=== PATIENT | female | born 1995 | race Two or more races ===

== ENCOUNTER 2017-07-05 22:44 | Outpatient (CLI) | payer MEDICAID | END 2017-07-05 22:45 | disposition EMS.NT | LOC: EMS 22:44 | PROVIDERS: ATTEND Surgery | DX: R06.00 Dyspnea, unspecified (principal); R42 Dizziness and giddiness ==

== ENCOUNTER 2017-07-21 19:49 | Emergency (ER) | payer OTHER, MEDICAID ==
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
[2017-07-21] MEDS ORDERED: IBUPROFEN 600 MG TABLET PO STA (20:15)
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
[2017-07-21 21:39] VITALS: BP 126/68
== END 2017-07-21 21:44 | disposition home or self-care (01) ==
LOC: ED 19:49
DX: S16.1XXA Strain of muscle, fascia and tendon at neck level, initial encounter (principal); V89.2XXA Person injured in unspecified motor-vehicle accident, traffic, initial encounter
CPT/HCPCS: 72040; 99283; A9270

== ENCOUNTER 2017-08-16 13:18 | Emergency (ER) | payer MEDICAID, OTHER ==
[2017-08-16] MEDS ORDERED: guaiFENesin/DEXTROMETHORPHAN 10 ML UDC PO STA (14:40)
[2017-08-16] MEDS ORDERED: BENZONATATE 100 MG CAPSULE PO STA (14:40)
--- NOTE | 2017-08-16 15:15 | XRAY Report ---
EXAM: CHEST RADIOGRAPHY EXAM DATE: 08/16/2017 02:57 PM. CLINICAL HISTORY: Cough, hemoptysis. COMPARISON: None. TECHNIQUE: 2 views. FINDINGS: Lungs/Pleura: No focal opacities evident. No pleural effusion. No pneumothorax. Normal volumes. Mediastinum: Heart and mediastinal contours are unremarkable. Other: None. IMPRESSION: No acute intrathoracic plain film abnormality. [facility] Referring Provider Line: [phone] SITE ID: [id number]
--- NOTE | 2017-08-16 15:36 | ED Physician Documentation ---
History of Present Illness - Stated complaint Stated Complaint: COUGH,SORE THROAT,CONGESTION,SOA,FEVER - Chief complaint Chief Complaint: Resp - Additonal information Additional information: hx from pt 21 y/o f 4 days of fever cough productive of mucous sometimes bloody sore throat ear ache myalgias exposed to influenza and croup denies preg Review of Systems Constitutional: reports: Fever, Chills, Myalgias Ears: reports: Ear pain Throat: reports: Sore throat Respiratory: reports: Cough, Hemoptysis : denies: Now EGA Endocrine: denies: Easy bruising / bleeding Immunocompromised: denies: Immunocompromised PD PAST MEDICAL HISTORY - Past Medical History Past Medical History: No Neuro: None Musculoskeletal: None - Past Surgical History Past Surgical History: No - Present Medications Home Medications: Ambulatory Orders Medication Instructions Recorded Confirmed Amoxicillin 500 mg PO Q8H #21 capsule 08/16/17 Benzonatate [Tessalon] 100 mg PO TID PRN #20 capsule 08/16/17 guaiFENesin/DEXTROMETHORPHAN 10 ml PO Q6H PRN #120 ml 08/16/17 [Robitussin Dm] - Allergies Allergies/Adverse Reactions: Allergies Allergy/AdvReac Type Severity Reaction Status Date / Time No Known Drug Allergies Allergy Verified 08/16/17 13:34 - Social History Does the pt smoke?: No Smoking Status: Never smoker Does the pt drink ETOH?: Yes Does the pt have substance abuse?: No - Immunizations Immunizations are current?: No - POLST Patient has POLST: No PD ED PE NORMAL - Vitals Vital signs reviewed: Yes - General General: Alert and oriented X 3 - HEENT HEENT: Moist mucous membranes. No: Ears normal (L TM dull erythematous loss of landmarks, R retracted), Pharynx benign (erythema s exudate) - Neck Neck: Supple, no meningeal sign - Cardiac Cardiac: RRR - Respiratory Respiratory: No respiratory distress, Clear bilaterally - Abdomen Abdomen: Non tender - Extremities Extremities: No edema, No calf tenderness / cord Results - Vitals Vitals: Vital Signs - 24 hr 08/16/17 13:32 Temperature 36.6 C Heart Rate 92 Respiratory 18 Rate Blood Pressure 123/63 O2 Saturation 98 Oxygen O2 Source Room air - Labs Labs: Laboratory Tests 08/16/17 13:30 Influenza A (Rapid) Negative Influenza B (Rapid) Negative Influenza Types A,B Ag - - Rads (name of study) CXR Radiology: See rad report (NACPD) Departure - Departure Disposition: 01 Home, Self Care Clinical Impression: Influenza Otitis media Qualifiers: Otitis media type: suppurative Chronicity: acute Laterality: left Recurrence: not specified as recurrent Spontaneous tympanic membrane rupture: without spontaneous rupture Qualified Code(s): H66.002 - Acute suppurative otitis media without spontaneous rupture of ear drum, left ear Condition: Good Instructions: ED Flu Prescriptions: Amoxicillin 500 mg PO Q8H #21 capsule Benzonatate [Tessalon] 100 mg PO TID PRN #20 capsule PRN Reason: to ease cough guaiFENesin/DEXTROMETHORPHAN [Robitussin Dm] 10 ml PO Q6H PRN #120 ml PRN Reason: Cough Comments: Your flu swabs were negative bujt the test is not 100% accurate - you were eposed to influenza and your symptoms are typical of influenza so I am fairly certain you have influenza as well. Your xray does not show pneumonia. You have been sick for 3-4 days so it is too late for tamiflu to help against the influenza virus I did prescribe an antibiotic for your ear infection And also prescribed medications to ease the cough Follow up with your PDM as needed Return to the ER if worse - especially if you cough up more than a tablespoon of lamberto blood Forms: Activity restrictions
[2017-08-16 15:50] VITALS: BP 126/77
== END 2017-08-16 15:50 | disposition home or self-care (01) ==
LOC: ED 13:18
DX: J11.1 Influenza due to unidentified influenza virus with other respiratory manifestations (principal); H66.002 Acute suppurative otitis media without spontaneous rupture of ear drum, left ear
CPT/HCPCS: 71046; 87275; 87276; 99283; A9270

== ENCOUNTER 2017-09-12 10:27 | Emergency (ER) | payer MEDICAID ==
[2017-09-12 11:15] LABS: BILIRUBIN,URINE NEGATIVE (NEGATIVE); GLUCOSE, URINE (UA) NEGATIVE (NEGATIVE); KETONES,URINE (UA) NEGATIVE (NEGATIVE); LEUKOCYTE ESTERASE, URINE NEGATIVE (NEGATIVE); NITRITE,URINE NEGATIVE (NEGATIVE); OCCULT BLOOD,URINE NEGATIVE (NEGATIVE); PH,URINE 6.5 PH (5.0-7.5); PROTEIN,URINE NEGATIVE (NEGATIVE); UROBILINOGEN,URINE 0.2 (NORMAL) E.U./dL (NORMAL)
[2017-09-12 11:17] LABS: CLARITY,URINE CLEAR (CLEAR); HCG UR QUAL NEGATIVE
--- NOTE | 2017-09-12 12:16 | ED Physician Documentation ---
PD HPI ABD PAIN - Stated complaint Stated Complaint: ABD PX - Chief complaint Chief Complaint: Abd Pain - History obtained from History obtained from: Patient - History of Present Illness Timing - onset: How many days ago Timing - duration: Days Timing - details: Gradual onset, Waxing and waning Quality: Cramping, Aching, Sharp (both sides of abdomen when coughing.) Location: All over / everywhere (she has had some upper abd pains at times, not related to eating. Crampy at times. This is mid to upper abd. She is also having sharp pain both sides mid to upper abd when she coughs. Has had a cough for about a month. Now with abd pain the past week or so. Intense pain at times for several minutes then fades.) Radiation: No: Lower back, Left flank, Right flank Associated symptoms: Constipation (mild), Other (cough). No: Fever, Nausea, Vomiting, Diarrhea, Melena Similar symptoms before: Has not had sx before Recently seen: Not recently seen Review of Systems Constitutional: denies: Fever, Chills Nose: denies: Rhinorrhea / runny nose, Congestion Throat: denies: Sore throat Cardiac: denies: Chest pain / pressure, Palpitations, Pedal edema, Calf pain Respiratory: reports: Cough, Wheezing. denies: Dyspnea GI: reports: Abdominal Pain, Constipation. denies: Abdominal Swelling, Nausea, Vomiting, Diarrhea : denies: Dysuria, Frequency Skin: denies: Rash, Lesions PD PAST MEDICAL HISTORY - Past Medical History Neuro: None Musculoskeletal: None - Past Surgical History Past Surgical History: No - Present Medications Home Medications: Ambulatory Orders Medication Instructions Recorded Confirmed Benzonatate [Tessalon] 100 mg PO TID PRN #25 capsule 09/12/17 Dexamethasone [Decadron] 4 mg PO DAILY #5 tablet 09/12/17 Doxycycline Monohydrate 100 mg PO BID #14 tablet 09/12/17 HYDROcod/ACETAM 5/325 [[place] 5/325] 1 tab PO Q6H PRN #15 tablet 09/12/17 - Allergies Allergies/Adverse Reactions: Allergies Allergy/AdvReac Type Severity Reaction Status Date / Time No Known Drug Allergies Allergy Verified 09/12/17 11:00 - Social History Does the pt smoke?: No Smoking Status: Never smoker Does the pt drink ETOH?: Yes Does the pt have substance abuse?: No - Immunizations Immunizations are current?: No - POLST Patient has POLST: No PD ED PE NORMAL - Vitals Vital signs reviewed: Yes - General General: Alert and oriented X 3, No acute distress, Well developed/nourished - HEENT HEENT: Ears normal, Pharynx benign - Neck Neck: Supple, no meningeal sign, No adenopathy - Cardiac Cardiac: RRR, No murmur - Respiratory Respiratory: Clear bilaterally - Abdomen Abdomen: Normal bowel sounds, Soft, Non distended, No organomegaly, Other ( minimal tenderness both sides mid abd, without guarding nor percussion tenderness. ) - Female Female : Deferred - Rectal Rectal: Deferred - Back Back: No CVA TTP - Derm Derm: Normal color, Warm and dry Results - Vitals Vitals: Vital Signs - 24 hr 09/12/17 09/12/17 10:52 13:30 Temperature 36.2 C L Heart Rate 79 75 Respiratory 18 16 Rate Blood Pressure 126/113 H 125/85 H O2 Saturation 97 Oxygen O2 Source Room air - Labs Labs: Laboratory Tests 09/12/17 11:03 Urine Color LT. YELLOW Urine Clarity CLEAR Urine pH 6.5 Ur Specific [place] <=1.005 Urine Protein NEGATIVE Urine Glucose (UA) NEGATIVE Urine Ketones NEGATIVE Urine Occult Blood NEGATIVE Urine Nitrite NEGATIVE Urine Bilirubin NEGATIVE Urine Urobilinogen 0.2 (NORMAL) Ur Leukocyte Esterase NEGATIVE Ur Microscopic Review NOT INDICATED Urine Culture Comments NOT INDICATED Urine HCG, Qual NEGATIVE - Rads (name of study) chest xray Radiology: Prelim report reviewed, EMP read contemporaneously (no infiltrate) PD MEDICAL DECISION MAKING - ED course Complexity details: considered differential (It sounds like her abd pain is largely muscular from coughing. Also could have some gastric component. No signs of GB based on area of tenderness. Has some element of constipation, so will treat for that. Otherwise URI symptoms. ), d/w patient Departure - Departure Disposition: 01 Home, Self Care Clinical Impression: Upper respiratory infection Qualifiers: URI type: unspecified URI Qualified Code(s): J06.9 - Acute upper respiratory infection, unspecified Abdominal pain Qualifiers: Abdominal location: generalized Qualified Code(s): R10.84 - Generalized abdominal pain Condition: Stable Record reviewed to determine appropriate education?: Yes Instructions: ED Abdominal Pain Unkn Cause, ED Upper Resp Infec Abx Tx Prescriptions: Benzonatate [Tessalon] 100 mg PO TID PRN #25 capsule PRN Reason: Cough Dexamethasone [Decadron] 4 mg PO DAILY #5 tablet Doxycycline Monohydrate 100 mg PO BID #14 tablet HYDROcod/ACETAM 5/325 [[place] 5/325] 1 tab PO Q6H PRN #15 tablet PRN Reason: Pain Comments: I think your stomach pain is intestinal related to the current illness you have as well as an effect of the coughing. Will treat the general illness with antibiotics doxycycline, Decadron anti-inflammatory, Tessalon for cough and hydrocodone for pains and cough. See if you are improving over the next 2-3 days. Use Tylenol or ibuprofen if needed for mild pains. Drink lots of fluids. Return if worsening. Discharge Date/Time: 09/12/17 13:32
[2017-09-12] MEDS ORDERED: BENZONATATE 100 MG CAPSULE PO STA (12:37)
[2017-09-12] MEDS ORDERED: ACETAMINOPHEN 325 MG TABLET PO STA (12:37)
[2017-09-12] MEDS ORDERED: IBUPROFEN 600 MG TABLET PO STA (12:37)
--- NOTE | 2017-09-12 13:06 | XRAY Preliminary Report ---
Exam: XR CHEST 2 VIEW X-RAY IMPRESSION: Normal 2-view chest radiography. [facility] SITE ID: [id number]
--- NOTE | 2017-09-12 13:10 | XRAY Report ---
EXAM: CHEST RADIOGRAPHY EXAM DATE: 09/12/2017 12:58 PM. CLINICAL HISTORY: Productive cough for one week. COMPARISON: 08/16/2017. TECHNIQUE: 2 views. FINDINGS: Lungs/Pleura: No focal opacities evident. No pleural effusion. No pneumothorax. Normal volumes. Mediastinum: Heart and mediastinal contours are unremarkable. Other: None. IMPRESSION: Normal 2-view chest radiography. [facility] Referring Provider Line: [phone] SITE ID: [id number]
[2017-09-12 13:32] VITALS: BP 125/85
== END 2017-09-12 13:32 | disposition home or self-care (01) ==
LOC: ED 10:27
DX: J06.9 Acute upper respiratory infection, unspecified (principal); R10.84 Generalized abdominal pain
CPT/HCPCS: 71046; 81003; 81025; 99283; A9270; 81001; 87086

== ENCOUNTER 2017-09-19 10:59 | Emergency (ER) | payer MEDICAID ==
--- NOTE | 2017-09-19 12:37 | ED Physician Documentation ---
PD HPI URI - Stated complaint Stated Complaint: HEAD-CHEST PX, EAR PX, WEAK, HURTS TO SWALLOW - Chief complaint Chief Complaint: General - History obtained from History obtained from: Patient - History of Present Illness Timing - onset: Yesterday Timing duration: Days (2) Timing details: Abrupt onset, Still present Associated symptoms: Fever, Chills, Nasal congestion, Sore throat, Dry cough. No: NVD Contributing factors: COPD / asthma. No: Sick contact, Travel, Immunocompromised Improves by: Rest Worsened by: Activity Similar symptoms before: Has not had sx before Recently seen: Not recently seen Review of Systems Constitutional: reports: Fever, Chills, Myalgias, Fatigue Nose: reports: Rhinorrhea / runny nose Throat: reports: Sore throat Respiratory: reports: Cough GI: reports: Nausea. denies: Vomiting, Diarrhea Skin: denies: Rash, Lesions PD PAST MEDICAL HISTORY - Past Medical History Neuro: None Musculoskeletal: None - Past Surgical History Past Surgical History: No - Present Medications Home Medications: Ambulatory Orders Medication Instructions Recorded Confirmed Benzonatate [Tessalon] 100 mg PO TID PRN #25 capsule 09/12/17 Dexamethasone [Decadron] 4 mg PO DAILY #5 tablet 09/19/17 Naproxen 375 mg PO BID #20 tablet 09/19/17 Tramadol HCl 50 mg PO Q6H PRN #15 tablet 09/19/17 - Allergies Allergies/Adverse Reactions: Allergies Allergy/AdvReac Type Severity Reaction Status Date / Time No Known Drug Allergies Allergy Verified 09/19/17 11:07 - Social History Does the pt smoke?: No Smoking Status: Never smoker Does the pt drink ETOH?: Yes Does the pt have substance abuse?: No - Immunizations Immunizations are current?: No - POLST Patient has POLST: No PD ED PE NORMAL - Vitals Vital signs reviewed: Yes - General General: Alert and oriented X 3, No acute distress, Well developed/nourished - HEENT HEENT: Ears normal, Pharynx benign - Neck Neck: Supple, no meningeal sign, No adenopathy - Cardiac Cardiac: RRR, No murmur - Respiratory Respiratory: Clear bilaterally - Abdomen Abdomen: Normal bowel sounds, Soft, Non tender - Back Back: No CVA TTP - Derm Derm: Normal color, Warm and dry, No rash Results - Vitals Vitals: Oxygen O2 Source Room air Departure - Departure Disposition: 01 Home, Self Care Clinical Impression: Upper respiratory infection Qualifiers: URI type: unspecified URI Qualified Code(s): J06.9 - Acute upper respiratory infection, unspecified Condition: Stable Record reviewed to determine appropriate education?: Yes Instructions: ED Upper Resp Infec No Abx Tx Prescriptions: Dexamethasone [Decadron] 4 mg PO DAILY #5 tablet Naproxen 375 mg PO BID #20 tablet Tramadol HCl 50 mg PO Q6H PRN #15 tablet PRN Reason: Pain Comments: Drink lots of fluids. Does sound like a another or recurrent head cold. Naproxen twice daily. Add tramadol if needed for pain. Decadron daily for 5 more days like it is last week for inflammation. Rest as needed. Discharge Date/Time: 09/19/17 12:57
[2017-09-19] MEDS ORDERED: traMADol 50 MG TABLET PO STA (12:48)
[2017-09-19] MEDS ORDERED: CETIRIZINE 10 MG TABLET PO STA (12:48)
[2017-09-19] MEDS ORDERED: DEXAMETHASONE 10 MG/ML VIAL PO STA (12:48)
[2017-09-19 12:57] VITALS: BP 121/64
== END 2017-09-19 12:57 | disposition home or self-care (01) ==
LOC: ED 10:59
DX: J06.9 Acute upper respiratory infection, unspecified (principal)
CPT/HCPCS: 99283; A9270

== ENCOUNTER 2019-03-10 14:05 | Emergency (ER) | payer SELFPAY ==
[2019-03-10 14:13] VITALS: BP 122/63
--- NOTE | 2019-03-10 15:12 | ED Physician Documentation ---
PD HPI HEENT - Stated complaint Stated Complaint: TOOTH PX - Chief complaint Chief Complaint: Heent - History obtained from History obtained from: Patient - History of Present Illness Timing - onset: How many days ago (3) Timing - duration: Days (3) Timing - details: Gradual onset, Still present Location: Tooth (left lower molar) Associated symptoms: Facial swelling. No: Fever, Congestion, Swollen nodes Similar symptoms before: Diagnosis (dental infections in the past. Does not have a dentist.) Recently seen: Not recently seen Review of Systems Constitutional: denies: Fever, Chills Nose: denies: Rhinorrhea / runny nose Throat: reports: Dental pain / toothache. denies: Sore throat Cardiac: denies: Chest pain / pressure PD PAST MEDICAL HISTORY - Past Medical History Past Medical History: No Musculoskeletal: None - Past Surgical History Past Surgical History: No - Present Medications Home Medications: Ambulatory Orders Medication Instructions Recorded Confirmed Benzonatate [Tessalon] 100 mg PO TID PRN #25 capsule 09/12/17 Naproxen 375 mg PO BID #20 tablet 09/19/17 Tramadol HCl 50 mg PO Q6H PRN #15 tablet 09/19/17 dexAMETHasone [Decadron] 4 mg PO DAILY #5 tablet 09/19/17 Clindamycin HCl [Clindamycin 300MG 300 mg PO TID #21 capsule 03/10/19 CAP] Hydrocodone/Acetaminophen [[place] 1 each PO Q6H PRN #20 tablet 03/10/19 5-325 Tablet] - Allergies Allergies/Adverse Reactions: Allergies Allergy/AdvReac Type Severity Reaction Status Date / Time No Known Drug Allergies Allergy Verified 03/10/19 14:13 - Social History Does the pt smoke?: No Smoking Status: Never smoker Does the pt drink ETOH?: Yes Does the pt have substance abuse?: No - Immunizations Immunizations are current?: No - POLST Patient has POLST: No PD ED PE NORMAL - Vitals Vital signs reviewed: Yes - General General: Alert and oriented X 3, No acute distress, Well developed/nourished - HEENT HEENT: No: Dentition benign (left lower 2nd molar with decay lingual side. Gum has some tenderness and swelling. No fluctuance. No redness. ) - Neck Neck: Supple, no meningeal sign, No adenopathy - Cardiac Cardiac: RRR, No murmur Results - Vitals Vitals: Vital Signs - 24 hr 03/10/19 14:11 Temperature 36.5 C Heart Rate 71 Respiratory 19 Rate Blood Pressure 122/63 O2 Saturation 99 Oxygen O2 Source Room air PD MEDICAL DECISION MAKING - ED course Complexity details: considered differential (dental infection. No drainable abscess. She says she will get Rx in few days when payday. ), d/w patient Departure - Departure Disposition: Home, Self Care Clinical Impression: Dental infection Condition: Stable Record reviewed to determine appropriate education?: Yes Instructions: ED Abscess Dental Follow-Up: Toshia De Leon [facility] [Provider Group] Prescriptions: Clindamycin HCl [Clindamycin 300MG CAP] 300 mg PO TID #21 capsule Hydrocodone/Acetaminophen [[place] 5-325 Tablet] 1 each PO Q6H PRN #20 tablet PRN Reason: Pain Comments: Stay well-hydrated. Use some naproxen or ibuprofen regular doses 2-3 times a day for inflammation. Add clindamycin antibiotic and hydrocodone for pain as needed. Follow-up with the dentist subsequently for more definitive care of the tooth. One option is [facility] dental clinic and [place] that does sliding scale or uninsured. Recheck if not improving well over a few days. Discharge Date/Time: 03/10/19 16:14
[2019-03-10] MEDS ORDERED: CLINDAMYCIN 150 MG CAPSULE PO STA (15:36)
[2019-03-10] MEDS ORDERED: HYDROcod/ACETAM 5/325 MG TABLET PO STA (15:39)
[2019-03-10] MEDS ORDERED: DEXAMETHASONE 10 MG/ML VIAL PO STA (15:40)
[2019-03-10] MEDS ORDERED: CHERRY SYRUP 10 ML UDC PO ONE (15:40)
== END 2019-03-10 16:14 | disposition home or self-care (01) ==
LOC: ED 14:05
DX: K04.7 Periapical abscess without sinus (principal)
CPT/HCPCS: 99282; 99283; A9270

== ENCOUNTER 2022-01-04 20:22 | Outpatient (CLI) | payer SELFPAY | END 2022-01-04 20:23 | disposition EMS.NT | LOC: EMS 20:22 | DX: R07.89 Other chest pain (principal); R20.0 Anesthesia of skin ==

== ENCOUNTER 2022-01-05 00:39 | Emergency (ER) | payer SELFPAY ==
--- NOTE | 2022-01-05 00:59 | ED Physician Documentation ---
PD HPI CHEST PAIN - Stated complaint Stated Complaint: Resolved chest pain - History obtained from History obtained from: Patient - History of Present Illness Timing - onset: Enter time (22:00), Today Timing - onset during: Light activity Timing - details: Abrupt onset Pain level max: 4 Pain level now: 0 Quality: Tightness Location: Substernal Radiation: Neck (throat) Improved by: Nothing Worsened by: Other (no exacerbating factors) Associated symptoms: Shortness of air, Diaphoresis, Nausea. No: Vomiting, Feeling faint / dizzy, General Weakness, Palpitations Similar symptoms before: Has not had sx before Recently seen: Not recently seen - Additional information Additional information: while making dinner at approximately 10 PM tonight, patient experienced midline chest tightness radiating to her throat associated with dyspnea, mild nausea, diaphoresis. The chest pain lasted approximately 60-90 minutes although the other symptoms had resolved within 30 minutes of onset. Denies h/o similar symptoms. She had called 911 and , per patient, EKG was performed and reassuring. Per patient, EMS recommended patient come to ED for further evaluation; she declined ambulance transport, drove self. She is asymptomatic at the time of this evaluation Review of Systems Constitutional: reports: Sweats. denies: Fever, Chills Cardiac: reports: Chest pain / pressure. denies: Palpitations, Calf pain Respiratory: reports: Dyspnea. denies: Cough, Hemoptysis, Wheezing GI: reports: Nausea. denies: Abdominal Pain, Vomiting : denies: Now [facility] PAST MEDICAL HISTORY - Past Medical History Past Medical History: Yes Musculoskeletal: None - Past Surgical History Past Surgical History: No - Present Medications Home Medications: Ambulatory Orders Medication Instructions Recorded Confirmed Benzonatate [Tessalon] 100 mg PO TID PRN #25 capsule 09/12/17 Naproxen 375 mg PO BID #20 tablet 09/19/17 Tramadol HCl 50 mg PO Q6H PRN #15 tablet 09/19/17 dexAMETHasone [Decadron] 4 mg PO DAILY #5 tablet 09/19/17 Clindamycin HCl [Clindamycin 300MG 300 mg PO TID #21 capsule 03/10/19 CAP] Hydrocodone/Acetaminophen [[place] 1 each PO Q6H PRN #20 tablet 03/10/19 5-325 Tablet] - Allergies Allergies/Adverse Reactions: Allergies Allergy/AdvReac Type Severity Reaction Status Date / Time No Known Drug Allergies Allergy Verified 01/05/22 00:48 - Social History Does the pt smoke?: No Smoking Status: Never smoker Does the pt drink ETOH?: Yes Does the pt have substance abuse?: No - Immunizations Immunizations are current?: No - POLST Patient has POLST: No PD ED PE NORMAL - Vitals Vital signs reviewed: Yes - General General: Alert and oriented X 3, No acute distress, Well developed/nourished - Neck Neck: Supple, no meningeal sign - Cardiac Cardiac: RRR, No murmur, No gallop, No rub - Respiratory Respiratory: No respiratory distress, Clear bilaterally - Abdomen Abdomen: Soft, Non tender - Back Back: No CVA TTP Results - Vitals Vitals: Oxygen O2 Source Room air - EKG (time done) No standard instances Rate: Rate (enter#) (78) Rhythm: NSR [place]: Normal Intervals: Normal [place] QRS: Normal Ischemia: Normal ST segments, T wave inversion (inverted in III, flat T in aVF) - Labs Labs: Laboratory Tests 01/05/22 01/05/22 01/05/22 01:08 01:08 01:08 WBC 13.1 H RBC 4.77 Hgb 12.8 Hct 40.2 MCV 84.3 MCH 26.8 L MCHC 31.8 L RDW 13.1 Plt Count 465 H MPV 9.1 Neut # (Auto) 8.3 H Lymph # (Auto) 3.7 H [place] # (Auto) 0.8 Eos # (Auto) 0.2 Baso # (Auto) 0.1 Absolute Nucleated RBC 0.00 Nucleated RBC % 0.0 Sodium 139 Potassium 4.0 Chloride 103 Carbon Dioxide 24 Anion Gap 12.0 BUN 13 Creatinine 1.0 Estimated GFR (MDRD) 67 L Glucose 125 H Calcium 10.2 Total Bilirubin 0.4 AST 25 ALT 31 Alkaline Phosphatase 55 Troponin I High Sens 4.0 Total Protein 8.0 Albumin 4.3 Globulin 3.7 Albumin/Globulin Ratio 1.2 Lipase 29 - Rads (name of study) chest xray Radiology: Prelim report reviewed, See rad report PD MEDICAL DECISION MAKING - ED course Complexity details: reviewed results, re-evaluated patient, considered differential, d/w patient ED course: c/o chest pain. Her heart score is arguably 1 (story is consistent with description of angina and associated symptoms), but there are no other factors on HEART score placing her outside of the "low risk" category. She has essentially normal blood tests including normal hs-cTn (incidental note of mildly elevated WBC and mild thrombocytosis). Normal chest xray and normal vital signs (minimally elevated/borderline elevated blood pressure). Results d/w patient, appropriate for d/c at this time. Cause of her symptoms is unknown but further testing, if necessary, can be pursued in outpatient setting unless symptoms worsen. Patient is comfortable with this plan. Departure - Departure Disposition: 01 Home, Self Care Clinical Impression: Chest pain Qualifiers: Chest pain type: unspecified Qualified Code(s): R07.9 - Chest pain, unspecified Condition: Good Instructions: ED Chest Pain Atypical Unkn Cause Comments: The cause of your chest pain is not apparent at this time. You have no concerning findings on the blood tests, EKG, and chest xray. Incidental note is made of mildly elevated white blood cell count and mildly elevated platelets. These are not elevated to a concerning extent, and that they are mildly elevated is a non-specific finding; it does not indicate a specific problem or illness. Follow up with your primary care provider for reevaluation of your chest discomfort; they might recheck your blood tests at that time. Discharge Date/Time: 01/05/22 02:16
[2022-01-05 01:15] LABS: BASOPHILS # (AUTO) 0.1 10^3/uL (0.0-0.1); BASOPHILS % (AUTO) 0.5 %; EOSINOPHILS # (AUTO) 0.2 10^3/uL (0.0-0.7); EOSINOPHILS % (AUTO) 1.8 %; HCT - HEMATOCRIT 40.2 % (37.0-47.0); HGB - HEMOGLOBIN 12.8 g/dL (12.0-16.0); LYMPHOCYTES # (AUTO) 3.7 10^3/uL (1.5-3.5); LYMPHOCYTES % (AUTO) 27.9 %; MEAN CORPUSCULAR HEMOGLOBIN 26.8 pg (27.0-31.0); MEAN CORPUSCULAR HGB CONC 31.8 g/dL (32.0-36.0); MEAN CORPUSCULAR VOLUME 84.3 fL (81.0-99.0); MEAN PLATELET VOLUME 9.1 fL (7.9-10.8); MONOCYTES # (AUTO) 0.8 10^3/uL (0.0-1.0); MONOCYTES % (AUTO) 6.3 %; NEUTROPHILS # (AUTO) 8.3 10^3/uL (1.5-6.6); NEUTROPHILS % (AUTO) 63.3 %; PLT - PLATELET COUNT 465 10^3/uL (130-450); RED BLOOD COUNT 4.77 10^6/uL (4.20-5.40); RED CELL DISTRIBUTION WIDTH 13.1 % (12.0-15.0); WHITE BLOOD COUNT 13.1 x10^3/uL (4.8-10.8)
[2022-01-05 01:29] LABS: ALBUMIN 4.3 g/dL (3.2-5.5); ALBUMIN/GLOBULIN RATIO 1.2 (1.0-2.2); BILIRUBIN,TOTAL 0.4 mg/dL (0.2-1.0); CALCIUM 10.2 mg/dL (8.5-10.3)
--- NOTE | 2022-01-05 02:05 | XRAY Report ---
PROCEDURE: Chest 2 View X-Ray INDICATIONS: chest pain TECHNIQUE: 2 views of the chest. COMPARISON: 09/12/2017. FINDINGS: Surgical changes and devices: None. Lungs and pleura: No pleural effusions or pneumothorax. Lungs are clear. Mediastinum: Mediastinal contours are normal. Heart size is normal. Bones and chest wall: No suspicious bony abnormalities. Soft tissues appear unremarkable. IMPRESSION: 1. No acute cardiopulmonary disease. Reviewed by: Anival Stahl MD on 01/05/2022 2:03 AM PDT Approved by: Anival Stahl MD on 01/05/2022 2:03 AM PDT Station ID: [id number]
[2022-01-05 02:17] VITALS: BP 130/86
== END 2022-01-05 02:16 | disposition home or self-care (01) ==
LOC: ED 00:39
DX: R07.9 Chest pain, unspecified (principal); D72.829 Elevated white blood cell count, unspecified; D75.839 Thrombocytosis, unspecified
CPT/HCPCS: 36415; 80053; 83690; 84484; 85025; 93005; 99282; 99284

== ENCOUNTER 2022-04-06 11:40 | Emergency (ER) | payer MEDICAID ==
--- NOTE | 2022-04-06 14:39 | ED Physician Documentation ---
PD HPI GI BLEED - Stated complaint Stated Complaint: FEMALE - Chief complaint Chief Complaint: General - History obtained from History obtained from: Patient - History of Present Illness Timing - onset: Enter time Timing - duration: Days (1) Timing - details: Gradual onset, Still present Associated symptoms: BRBPR Contributing factors: Other (9wks ). No: Sick contact, Bad food, Recent antibiotics, Alcohol use, NSAID use Improved by: BM Similar symptoms before: Has not had sx before Recently seen: Not recently seen - Additional information Additional information: Erna Loera is a 26-year-old female who is 9 weeks and she has developed some rectal bleeding last night. She has had blood on the toilet paper 3 times. She denies any clots or passage of blood as stool itself. She did state there was some blood on the stool. She has not had this happen to her previously and she denies any external hemorrhoids. She denies any pain to her rectum. She was constipated until yesterday. Review of Systems Constitutional: denies: Fever Respiratory: denies: Cough GI: reports: Constipation, Bloody / black stool. denies: Vomiting, Diarrhea : denies: Dysuria, Frequency PD PAST MEDICAL HISTORY - Past Medical History Musculoskeletal: None - Past Surgical History Past Surgical History: No - Present Medications Home Medications: Ambulatory Orders Medication Instructions Recorded Confirmed No Known Home Medications 04/06/22 04/06/22 - Allergies Allergies/Adverse Reactions: Allergies Allergy/AdvReac Type Severity Reaction Status Date / Time No Known Drug Allergies Allergy Verified 04/06/22 11:52 - Social History Does the pt smoke?: No Smoking Status: Never smoker Does the pt drink ETOH?: Yes Does the pt have substance abuse?: No - Immunizations Immunizations are current?: No - POLST Patient has POLST: No PD ED PE NORMAL - Vitals Vital signs reviewed: Yes (hypertensive ) - General General: Alert and oriented X 3, No acute distress, Well developed/nourished - HEENT HEENT: Atraumatic, PERRL, EOMI - Respiratory Respiratory: No respiratory distress - Rectal Rectal: Other (No external hemmorrhoids definate engorged internal hemorrhoids without blood on the glove. normal sphincter tone. ) - Derm Derm: Normal color, Warm and dry, No rash - Extremities Extremities: No deformity, No edema - Neuro Neuro: Alert and oriented X 3, cloth opener hand 2-12 intact, No motor deficit, No sensory deficit, Normal speech Eye Opening: Spontaneous Motor: Obeys Commands Verbal: Oriented GCS Score: 15 - Psych Psych: Normal mood, Normal affect Results - Vitals Vitals: Vital Signs - 24 hr 04/06/22 04/06/22 11:48 15:04 Temperature 36.5 C Heart Rate 84 84 Respiratory 18 18 Rate Blood Pressure 134/88 H 120/71 O2 Saturation 99 100 Oxygen O2 Source Room air - Labs Labs: Laboratory Tests 04/06/22 04/06/22 14:36 14:36 WBC 11.7 H RBC 4.86 Hgb 12.8 Hct 41.0 MCV 84.4 MCH 26.3 L MCHC 31.2 L RDW 13.2 Plt Count 487 H MPV 9.2 Neut # (Auto) 8.3 H Lymph # (Auto) 2.2 [place] # (Auto) 1.0 Eos # (Auto) 0.1 Baso # (Auto) 0.0 Absolute Nucleated RBC 0.00 Nucleated RBC % 0.0 Sodium 135 Potassium 4.2 Chloride 102 Carbon Dioxide 25 Anion Gap 8.0 BUN 9 Creatinine 0.6 Estimated GFR (MDRD) 121 Glucose 84 Calcium 9.9 Total Bilirubin 0.6 AST 25 ALT 29 Alkaline Phosphatase 53 Total Protein 7.9 Albumin 4.1 Globulin 3.8 Albumin/Globulin Ratio 1.1 Lipase 28 PD MEDICAL DECISION MAKING - ED course Complexity details: reviewed results, re-evaluated patient, considered differential, d/w patient ED course: 26-year-old female 9 weeks with recent constipation has had 3 episodes of blood on the toilet paper she has normal blood counts and engorged internal hemorrhoids as a source of potential bleeding. She is discharged to home with instructions on stable hematochezia and she has follow-up with [facility] TECHNICIAN tomorrow. Departure - Departure Disposition: 01 Home, Self Care Clinical Impression: Hematochezia Condition: Stable Instructions: ED Hematochezia Stable Follow-Up: Olivia Clemente ARNP [Provider Admit Priv/Credential] - Comments: Erna today it looks like the bleeding you had from your rectum is probably coming from internal hemorrhoids. Your blood counts are stable and my recommendation is to follow-up with Olivia Mcgill as planned tomorrow. Discharge Date/Time: 04/06/22 15:04
[2022-04-06 14:43] LABS: BASOPHILS % (AUTO) 0.3 %; EOSINOPHILS # (AUTO) 0.1 10^3/uL (0.0-0.7); EOSINOPHILS % (AUTO) 0.9 %; HGB - HEMOGLOBIN 12.8 g/dL (12.0-16.0); LYMPHOCYTES # (AUTO) 2.2 10^3/uL (1.5-3.5); LYMPHOCYTES % (AUTO) 18.8 %; MEAN CORPUSCULAR HEMOGLOBIN 26.3 pg (27.0-31.0); MEAN CORPUSCULAR HGB CONC 31.2 g/dL (32.0-36.0); MEAN CORPUSCULAR VOLUME 84.4 fL (81.0-99.0); MEAN PLATELET VOLUME 9.2 fL (7.9-10.8); MONOCYTES % (AUTO) 8.6 %; NEUTROPHILS # (AUTO) 8.3 10^3/uL (1.5-6.6); NEUTROPHILS % (AUTO) 71.1 %; PLT - PLATELET COUNT 487 10^3/uL (130-450); RED BLOOD COUNT 4.86 10^6/uL (4.20-5.40); RED CELL DISTRIBUTION WIDTH 13.2 % (12.0-15.0); WHITE BLOOD COUNT 11.7 x10^3/uL (4.8-10.8)
[2022-04-06 15:01] LABS: ALBUMIN 4.1 g/dL (3.2-5.5); ALBUMIN/GLOBULIN RATIO 1.1 (1.0-2.2); BILIRUBIN,TOTAL 0.6 mg/dL (0.2-1.0); CALCIUM 9.9 mg/dL (8.5-10.3); CREATININE 0.6 mg/dL (0.4-1.0); POTASSIUM 4.2 mmol/L (3.5-5.0); TOTAL PROTEIN 7.9 g/dL (6.7-8.2)
[2022-04-06 15:04] VITALS: BP 120/71
== END 2022-04-06 15:04 | disposition home or self-care (01) ==
LOC: ED 11:40
DX: O99.611 Diseases of the digestive system complicating pregnancy, first trimester (principal); K92.1 Melena; Z3A.09 9 weeks gestation of pregnancy
CPT/HCPCS: 36415; 80053; 83690; 85025; 99282; 99283

== ENCOUNTER 2022-04-13 08:59 | Outpatient (CLI) | payer MEDICAID ==
--- NOTE | 2022-04-13 13:23 | Ultrasound Report ---
PROCEDURE: OB First Trimester w/TV INDICATIONS: POSITIVE TEST OUTSIDE/PRIOR DATING DATA: Last menstrual period (LMP): 02/04/2022. LMP-based estimated date of delivery (MARCIA): 11/11/2022. First dating scan (date and location): 04/13/2022. Estimated date of delivery (MARCIA) from first dating scan: 11/11/2022. TECHNIQUE: Real-time scanning was performed of the fetus and maternal pelvic organs, with image documentation. Endovaginal scanning was also performed to better visualize the fetus and maternal ovaries. COMPARISON: None FINDINGS: Embryo: [place]-rump length 2.8 cm corresponding with a 9 week 5 day gestation Heart rate: 167 beats per minutes. Subchorionic/implantation bleed measures 1.9 x 0.4 x 1.2 cm Measurement variability in dating: +/- 4 weeks by LMP, +/- 7 days by mean sac diameter (use before 6 weeks gestation if crown-rump length not able to be measured), +/- 5 days by crown-rump length (6-12 weeks gestation). Maternal organs: Ovaries unremarkable. IMPRESSION: Single live intrauterine consistent with a 9 week 5 day gestation Perigestational bleed 1.9 x 0.4 cm Reviewed by: Freddie Gavin MD on 04/13/2022 12:21 PM SISSY Approved by: Freddie Gavin MD on 04/13/2022 12:21 PM SISSY Station ID: [id number]
== END 2022-04-13 09:00 | disposition home or self-care (01) ==
LOC: DI 08:59
PROVIDERS: ATTEND Nurse Practitioner
DX: O20.9 Hemorrhage in early pregnancy, unspecified (principal); Z3A.09 9 weeks gestation of pregnancy

== ENCOUNTER 2022-05-22 09:31 | Outpatient (CLI) | payer MEDICAID ==
[2022-05-22 09:46] LABS: BASOPHILS % (AUTO) 0.2 %; EOSINOPHILS # (AUTO) 0.1 10^3/uL (0.0-0.7); EOSINOPHILS % (AUTO) 1.3 %; HCT - HEMATOCRIT 37.4 % (37.0-47.0); HGB - HEMOGLOBIN 11.9 g/dL (12.0-16.0); LYMPHOCYTES # (AUTO) 1.9 10^3/uL (1.5-3.5); LYMPHOCYTES % (AUTO) 20.1 %; MEAN CORPUSCULAR HEMOGLOBIN 26.9 pg (27.0-31.0); MEAN CORPUSCULAR HGB CONC 31.8 g/dL (32.0-36.0); MEAN CORPUSCULAR VOLUME 84.6 fL (81.0-99.0); MEAN PLATELET VOLUME 9.4 fL (7.9-10.8); MONOCYTES # (AUTO) 0.6 10^3/uL (0.0-1.0); MONOCYTES % (AUTO) 6.2 %; NEUTROPHILS # (AUTO) 6.8 10^3/uL (1.5-6.6); PLT - PLATELET COUNT 417 10^3/uL (130-450); RED BLOOD COUNT 4.42 10^6/uL (4.20-5.40); RED CELL DISTRIBUTION WIDTH 13.6 % (12.0-15.0); WHITE BLOOD COUNT 9.4 x10^3/uL (4.8-10.8)
[2022-05-23 05:09] LABS: HBsAG SCREEN Negative (Negative); HCV AB <0.1 s/co ratio (0.0-0.9)
[2022-05-23 06:09] LABS: RPR Non Reactive (Non Reactive)
[2022-05-23 08:10] LABS: VARICELLA-ZOSTER AB IGG <135 index (Immune >165)
[2022-05-23 10:08] LABS: HIV SCREEN 4TH GENERATION Non Reactive (Non Reactive)
== END 2022-05-22 09:32 | disposition home or self-care (01) ==
LOC: LAB 09:31
PROVIDERS: ATTEND Nurse Practitioner
DX: Z34.90 Encounter for supervision of normal pregnancy, unspecified, unspecified trimester (principal); Z36.89 Encounter for other specified antenatal screening
CPT/HCPCS: 36415; 85025; 86592; 86762; 86787; 86803; 86850; 86900; 86901; 87340; 87389

== ENCOUNTER 2022-06-27 13:50 | Outpatient (CLI) | payer MEDICAID ==
--- NOTE | 2022-06-27 21:26 | Ultrasound Report ---
PROCEDURE: OB Detailed Eval INDICATIONS: SUPERVISION OF OUTSIDE/PRIOR DATING DATA: Last menstrual period (LMP): 02/04/2022. LMP-based estimated date of delivery (MARCIA): 11/11/2022. First dating scan (date and location): 04/13/2022. Estimated date of delivery (MARCIA) from first dating scan: 11/11/2022. TECHNIQUE: Real-time scanning was performed of the fetus, with image documentation and biometric measurements. Endovaginal scanning: Not performed COMPARISON: 04/13/2022 FINDINGS: General: A single living intrauterine gestation is present. Presentation: Variable Placenta: Placental position is posterior. Placental edge 1.6 cm from the internal os. Amniotic fluid index: 14.7 cm, normal for gestational age. heart rate: 152 beats per minute. Maternal cervical canal: 6.5 cm long; normal length is 2.5 cm or more. biometrics: Biparietal diameter: 4.5 cm, 19 weeks 5 days Head circumference: 17.2 cm, 19 weeks 5 days Abdominal circumference: 15.2 cm, 20 weeks 3 days Femur length: 3.5 cm, 21 weeks 1 day Estimated gestational age from initial scan: 20 weeks 3 days Composite gestational age from present scan: 20 weeks 2 days Estimated weight and percentile: 364 g, 55th percentile Measurement variability in biometric dating: +/- 10 days from 12-20 weeks gestation, +/- 2 weeks from 20-30 weeks gestation, +/- 3 weeks at 30 weeks gestation or later. Anatomic survey: Neuro: Ventricles are normal at less than 10 mm. Cisterna magna is normal at 3-11 mm. Cerebellum i s normal in size and morphology. Nuchal skin fold: Normal at less than 6 mm between 14 and 20 weeks gestational age. Face: Nose and lips, facial profile are normal. Spine: No evidence for spina bifida. Heart: 4-chambered heart is present. Ventricular outflow tracts are not well visualized due to mater nal body habitus and position. Diaphragm: Diaphragm is intact. Stomach: Left-sided stomach is present. Kidneys: No hydronephrosis. Normal is less than 5 mm in 2nd trimester, less than 7 mm in 3rd trimester. Cord: 3 vessel cord has orthotopic insertion. Bladder: Normal in size. Extremities: All 4 extremities are visualized. IMPRESSION: 1. Single living intrauterine . 2. Estimated weight at the 55th percentile. 3. Cardiac ventricular outflow tracts are not well visualized. Attention on follow-up is recommended. 4. Remainder of the second trimester anatomy survey is within normal limits. 5. Low lying placenta. Attention on follow-up for anatomy survey completion is recommended, otherwise recommend follow-up transvaginal ultrasound at or before 32 weeks to assess for resolution and to ex clude vasa previa. Reviewed by: Tomas Minor MD on 06/27/2022 9:24 PM PST Approved by: Tomas Minor MD on 06/27/2022 9:24 PM PST Station ID: [id number]
== END 2022-06-27 13:51 | disposition home or self-care (01) ==
LOC: DI 13:50
PROVIDERS: ATTEND Obstetrics & Gynecology
DX: O44.42 Low lying placenta NOS or without hemorrhage, second trimester (principal); Z3A.20 20 weeks gestation of pregnancy

== ENCOUNTER 2022-07-06 16:55 | Outpatient (CLI) | payer MEDICAID ==
--- NOTE | 2022-07-07 11:45 | Ultrasound Report ---
PROCEDURE: OB F/U or Repeat INDICATIONS: SUPERVISION OF OUTSIDE/PRIOR DATING DATA: Last menstrual period (LMP): 02/04/2022. LMP-based estimated date of delivery (MARCIA): 11/11/2022. First dating scan (date and location): 04/13/2022. Estimated date of delivery (MARCIA) from first dating scan: 11/11/2022. The below data below was generated using the working MARCIA of 11/11/2022 TECHNIQUE: Real-time scanning was performed of the fetus, with image documentation. Endovaginal scanning: Not indicated COMPARISON: 04/13/2022, 06/27/2022 FINDINGS: General: A single living intrauterine gestation is present. Presentation: Variable Placenta: Placental position is posterior, without previa. Amniotic fluid index: 15.8 cm, normal for gestational age. heart rate: 153 beats per minute. Maternal cervical canal: 5.1 cm long; normal length is 2.5 cm or more. Estimated gestational age from initial scan: 21 weeks, 5 days. . Other: Placental cord insertion is approximately 2.8 to 3.5 cm from internal os. Right and left ventr icular outflow tracts are suboptimally seen on the current study due to position. IMPRESSION: 1. Single live intrauterine gestation with fetus in variable presentation. heart rate is 153 bp m. Normal amount of amniotic fluid with TOBIAS measures 15.8 cm and largest pocket measures 5.5 cm. 2. Placental cord insertion is within normal limits on the current study. Right and left ventricular outflow tracts are still suboptimally seen due to position. Reviewed by: Elevr Jesus MD on 07/07/2022 11:44 AM PST Approved by: Elver Jesus MD on 07/07/2022 11:44 AM PST Station ID: [id number]
== END 2022-07-06 16:56 | disposition home or self-care (01) ==
LOC: DI 16:55
PROVIDERS: ATTEND Obstetrics & Gynecology
DX: Z34.92 Encounter for supervision of normal pregnancy, unspecified, second trimester (principal)

== ENCOUNTER 2022-07-13 14:49 | Outpatient (CLI) | payer MEDICAID ==
[2022-07-15 21:07] LABS: AFP MOM 1.02 (.); AFP VALUE 62.1 ng/mL (.); DIA MOM See interpretation. (.); DIA VALUE 118.08 pg/mL (.); DSR (BY AGE) 1 IN 918 (.); DSR (SECOND TRIMESTER) 1 IN See interpretation. (.); GEST. AGE ON COLLECTION DATE 22.7 WEEKS (.); HCG MOM See interpretation. (.); HCG VALUE 9884 mIU/mL (.); INSULIN DEP DIABETES No (.); MATERNAL AGE AT EDD 27.1 yr (.); MULTIPLE GESTATION No (.); OPEN SPINA BIFIDA RISK 1 IN 10000 (.); RACE Other (.); RESULTS Report (.); TEST RESULTS See interpretation. (.); TRISOMY 18 RISK See interpretation. (.); UE3 MOM See interpretation. (.); UE3 VALUE 3.07 ng/mL (.); WEIGHT 262 lbs (.)
== END 2022-07-13 14:50 | disposition home or self-care (01) ==
LOC: LAB 14:49
PROVIDERS: ATTEND Obstetrics & Gynecology
DX: Z34.90 Encounter for supervision of normal pregnancy, unspecified, unspecified trimester (principal); Z36.89 Encounter for other specified antenatal screening
CPT/HCPCS: 36415; 81511

== ENCOUNTER 2022-08-03 14:34 | Outpatient (CLI) | payer MEDICAID ==
--- NOTE | 2022-08-04 13:41 | Ultrasound Report ---
PROCEDURE: OB F/U or Repeat INDICATIONS: OBESITY COMPLICATING OUTSIDE/PRIOR DATING DATA: Last menstrual period (LMP): 02/04/2022 LMP-based estimated date of delivery (MARCIA): 11/11/2022. First dating scan (date and location): 04/13/2022. Estimated date of delivery (MARCIA) from first dating scan: 11/11/2022. The below data below was generated using the working MARCIA of 11/11/2022 TECHNIQUE: Real-time scanning was performed of the fetus, with image documentation and biometric measurements. Endovaginal scanning: Not performed COMPARISON: Several prior studies, most recent from 07/06/2022 FINDINGS: General: A single living intrauterine gestation is present. Presentation: Breech Placenta: Placental position is posterior, without previa. Amniotic fluid index: 20.0 cm, normal for gestational age. Largest pocket is 6.0 cm heart rate: 152 beats per minute. Maternal cervical canal: Closed and 4.8 cm long; normal length is 2.5 cm or more. biometrics: Biparietal diameter: 5.9 cm, 24 weeks, 1 day Head circumference: 23.2 cm, 25 weeks, 1 day Abdominal circumference: 21.6 cm, 26 weeks, 1 day Femur length: 4.8 cm, 26 weeks, 0 days Estimated gestational age from initial scan: 25 weeks, 5 days Composite gestational age from present scan: 25 weeks, 3 days Estimated weight and percentile: 861 g, 45th percentile Measurement variability in biometric dating: +/- 10 days from 12-20 weeks gestation, +/- 2 weeks from 20-30 weeks gestation, +/- 3 weeks at 30 weeks gestation or more. Other: Left cardiac ventricular outflow tract is grossly within normal limits but suboptimally seen. Right ventricular outflow tract was not well seen due to patient body habitus and the fetus position. IMPRESSION: 1. Single living intrauterine with appropriate growth. 2. Estimated weight at the 45th percentile. 3. Continued difficulty visualizing cardiac structures. Continued follow-up recommended. Reviewed by: María Elena English MD on 08/04/2022 1:39 PM PST Approved by: María Elena English MD on 08/04/2022 1:39 PM PST Station ID: [id number]
== END 2022-08-03 14:35 | disposition home or self-care (01) ==
LOC: DI 14:34
PROVIDERS: ATTEND Obstetrics & Gynecology
DX: O99.212 Obesity complicating pregnancy, second trimester (principal); Z3A.25 25 weeks gestation of pregnancy

== ENCOUNTER 2022-09-05 15:56 | Outpatient (CLI) | payer MEDICAID ==
[2022-09-05 20:49] LABS: HCT - HEMATOCRIT 36.5 % (37.0-47.0); HGB - HEMOGLOBIN 11.1 g/dL (12.0-16.0); MEAN CORPUSCULAR HGB CONC 30.4 g/dL (32.0-36.0); MEAN CORPUSCULAR VOLUME 88.8 fL (81.0-99.0); MEAN PLATELET VOLUME 10.5 fL (7.9-10.8); RED BLOOD COUNT 4.11 10^6/uL (4.20-5.40)
== END 2022-09-05 15:57 | disposition home or self-care (01) ==
LOC: LAB.N 15:56
PROVIDERS: ATTEND Nurse Practitioner Obstetrics & Gynecology
DX: Z36.9 Encounter for antenatal screening, unspecified (principal); Z67.91 Unspecified blood type, Rh negative
CPT/HCPCS: 36415; 82950; 85027; 86850; 86900; 86901

== ENCOUNTER 2022-09-23 15:00 | Outpatient (CLI) | payer MEDICAID ==
[2022-09-23 16:36] LABS: BILIRUBIN,URINE NEGATIVE (NEGATIVE); GLUCOSE, URINE (UA) NEGATIVE (NEGATIVE); KETONES,URINE (UA) NEGATIVE (NEGATIVE); LEUKOCYTE ESTERASE, URINE NEGATIVE (NEGATIVE); NITRITE,URINE NEGATIVE (NEGATIVE); OCCULT BLOOD,URINE NEGATIVE (NEGATIVE); PH,URINE 6.5 PH (5.0-7.5); PROTEIN,URINE NEGATIVE (NEGATIVE); UROBILINOGEN,URINE 0.2 (NORMAL) E.U./dL (NORMAL)
[2022-09-23 16:38] VITALS: BP 118/69
[2022-09-23 16:42] LABS: BACTERIA,URINE Rare /HPF (None Seen); CLARITY,URINE CLEAR (CLEAR); RBC,URINE None Seen /HPF (0-5); SQUAMOUS EPITHELIAL CELL,UR RARE Squamous (<= Few); WBC,URINE 0-3 /HPF (0-5)
--- NOTE | 2022-09-24 11:18 | PROVIDER PROGRESS NOTE ---
- HPI Chief Complaint: Other Current : Current EDU 11/11/22 Gestation 33 Weeks and 0 Days 2 Para 1 Vital Signs Temperature 37.4 C 09/23/22 15:19 Heart Rate 90 09/23/22 15:19 Respiratory Rate 16 09/23/22 15:19 Blood Pressure 112/69 09/23/22 15:19 Temperature 37.1 C 09/23/22 15:35 Heart Rate 86 09/23/22 15:35 Respiratory Rate 16 09/23/22 15:35 Blood Pressure 118/69 09/23/22 15:35 O2 Saturation If not protocol: Oxygen Flow, liters/minute - Procedures OB Procedure Performed: NST Diagnosis/Indication for NST: Other NST Procedure: NST Procedure Start Date 09/23/22 Start Time 15:15 Stop Time 16:00 Vibroacoustic Stimulation Used No Patient States Movement Yes - Plan Plan: Erna presents to [facility] with c/o lower back pain that radiates to the top of her stomach for the past several hours. She states she has a stressful job and is feeling unsupported by her co-workers. 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 She denies vaginal bleeding or leakage of fluid. She denies urinary symptoms. She reports regular bowel movements. She denies abnormal vaginal discharge. She reports +FM. NST reactive. FHR baseline 140s, moderate variability, + accels, no decels No contractions appreciated via tocometry. UA- negative Plan: Pt released home with precautions. F/u for regularly scheduled visit 09/26/2022. Reviewed warning s/sx and when to present. Pt verbalized understanding and agrees to above plan. She denies further questions or concerns at this time. FINAL DIAGNOSIS: Back pain in , third trimester
== END 2022-09-23 16:20 | disposition home or self-care (01) ==
LOC: WFO 15:00 → FBP 15:03 → WFO 16:20
PROVIDERS: ATTEND Nurse Practitioner Obstetrics & Gynecology
DX: O99.891 Other specified diseases and conditions complicating pregnancy (principal); M54.50 Low back pain, unspecified; Z3A.33 33 weeks gestation of pregnancy
CPT/HCPCS: 59025; 81001; 87086

== ENCOUNTER 2022-10-13 16:16 | Outpatient (CLI) | payer MEDICAID ==
--- NOTE | 2022-10-13 22:55 | Ultrasound Report ---
PROCEDURE: OB F/U or Repeat INDICATIONS: UTERINE SIZE DATE DISCREPENCY OUTSIDE/PRIOR DATING DATA: Last menstrual period (LMP): 02/04/2022. LMP-based estimated date of delivery (MARCIA): 11/11/2022. First dating scan (date and location): 04/13/2022. Estimated date of delivery (MARCIA) from first dating scan: 11/11/2022. TECHNIQUE: Real-time scanning was performed of the fetus, with image documentation and biometric measurements. COMPARISON: 08/03/2022, 07/06/2022 FINDINGS: General: A single living intrauterine gestation is present. Presentation: Breech Placenta: Placental position is posterior, without previa. Amniotic fluid index: 18.1 cm, within normal limits for gestational age. heart rate: 157 beats per minute. Maternal cervical canal: 6.1 cm long; normal length is 2.5 cm or more. biometrics: Biparietal diameter: 8.8 cm, 35 weeks and 4 days Head circumference: 34.4 cm, 39 weeks and 5 days Abdominal circumference: 35.5 cm, 39 weeks and 3 days Femur length: 7.7 cm, 39 weeks and 2 days Estimated gestational age from initial scan: 35 weeks and 6 days Composite gestational age from present scan: 38 weeks and 4 days Estimated weight and percentile: 3621 g, 99th percentile Other: Not applicable. Left ovary is not well seen. IMPRESSION: Fetus is large for gestational age, at the 99th percentile with EFW of 3621 g. TOBIAS is at the upper limit of normal, 18.1 cm. Breech positioning. Reviewed by: Diomedes Valentin MD on 10/13/2022 10:54 PM PDT Approved by: Diomedes Valentin MD on 10/13/2022 10:54 PM PDT Station ID: [id number]
== END 2022-10-13 16:17 | disposition home or self-care (01) ==
LOC: DI 16:16
PROVIDERS: ATTEND Nurse Practitioner Obstetrics & Gynecology
DX: O26.843 Uterine size-date discrepancy, third trimester (principal); O32.1XX0 Maternal care for breech presentation, not applicable or unspecified; Z3A.38 38 weeks gestation of pregnancy

== ENCOUNTER 2022-10-24 11:43 | Outpatient (CLI) | payer MEDICAID ==
[2022-10-24] MEDS ORDERED: TERBUTALINE 1 MG/ML VIAL SUBQ PRN (12:01)
[2022-10-24] MEDS ORDERED: SODIUM CHLORIDE FLUSH 0.9% 10 ML SYRINGE IVP PRN (12:01)
[2022-10-24] MEDS ORDERED: ONDANSETRON 4 MG/2 ML VIAL IVP PRN (12:01)
[2022-10-24] MEDS ORDERED: fentaNYL 100 MCG/2 ML VIAL IVP PRN (12:01)
[2022-10-24] MEDS ORDERED: RHO(D) IMMUNE GLOBULIN 300 MCG SYRINGE IM PRN (12:01)
[2022-10-24 12:21] LABS: BASOPHILS % (AUTO) 0.3 %; EOSINOPHILS # (AUTO) 0.1 10^3/uL (0.0-0.7); EOSINOPHILS % (AUTO) 0.8 %; HCT - HEMATOCRIT 37.8 % (37.0-47.0); HGB - HEMOGLOBIN 11.7 g/dL (12.0-16.0); LYMPHOCYTES # (AUTO) 2.2 10^3/uL (1.5-3.5); LYMPHOCYTES % (AUTO) 20.1 %; MEAN CORPUSCULAR HEMOGLOBIN 25.8 pg (27.0-31.0); MEAN CORPUSCULAR VOLUME 83.4 fL (81.0-99.0); MEAN PLATELET VOLUME 9.6 fL (7.9-10.8); MONOCYTES # (AUTO) 1.1 10^3/uL (0.0-1.0); MONOCYTES % (AUTO) 9.7 %; NEUTROPHILS # (AUTO) 7.5 10^3/uL (1.5-6.6); NEUTROPHILS % (AUTO) 68.7 %; PLT - PLATELET COUNT 419 10^3/uL (130-450); RED BLOOD COUNT 4.53 10^6/uL (4.20-5.40); WHITE BLOOD COUNT 10.9 x10^3/uL (4.8-10.8)
[2022-10-24] MEDS ORDERED: LACTATED RINGERS 1,000 ML IV ONE (12:21)
[2022-10-24 12:24] VITALS: BP 127/57
--- NOTE | 2022-10-24 12:45 | HISTORY & PHYSICAL EXAMINATION ---
Admit History - Visit Reason Visit Reason: Other (External cephalic version) - : 2 Parity: 1 Care: positive: [facility] Risk/History: positive: None Complications This : positive: None Smoking Status: Never smoker - Other Maternal History Other Maternal History: HPI: 27-year-old -0-0-1 at 37 weeks gestation presenting today for external cephalic version. She has good movement. Denies loss of fluid. No BAH/BV or RUQP. No vaginal bleeding. Denies nausea and vomiting. Denies urinary urgency or dysuria. All other symptoms reviewed and were negative except per HPI. PMH Obesity class III PSH Denies previous surgeries OB History -0-0-1 SH Denies tobacco, alcohol, drugs Family History Noncontributory Allergies No known drug allergies Medications vitamins Physical exam: General: Alert, oriented, no acute distress Head: Normal cephalic atraumatic Eyes: PERRLA, extraocular motions intact. Respiratory: Normal rate of respiration. No accessory muscle use, normal respiratory effort. Cardiovascular: Regular rate and rhythm Abdomen: Gravid, nontender, nondistended Extremities: Normal range of motion Neuro: Oriented x3. Normal movements Psych: Appropriate mood and affect. Normal judgment and insight FHT: 150 beats minute baseline, moderate variability, accelerations present, no decelerations. Reactive NST [place]: Quiescent Plan 27-year-old -0-0-1 at 37 weeks 3 days gestation here for external cephalic version 1. malpresentation -Discussed risk, benefits, alternatives of external cephalic version including rupture membrane, placental disruption, heart rate changes. Discussed the risk of proceeding with urgent section if there are prolonged problems. All questions posed by patient were answered. -Plan for spinal anesthesia. Terbutaline for uterine relaxation. 2. 37 weeks gestation Meds/Allgy - Home Medications Home Medications: Ambulatory Orders Medication Instructions Recorded Confirmed No Known Home Medications 04/06/22 04/06/22 - Allergies Allergies/Adverse Reactions: Allergies Allergy/AdvReac Type Severity Reaction Status Date / Time No Known Drug Allergies Allergy Verified 04/06/22 11:52 Physical - Abdominal Exam Vital Signs: Temp Pulse Resp BP Pulse Ox O2 Flow Rate 97.7 F 78 18 127/57 L 10/24/22 12:03 10/24/22 12:03 10/24/22 12:03 10/24/22 12:03
--- NOTE | 2022-10-24 12:49 | ANESTHESIA ---
Pre-Anesthesia VS, & Labs - Diagnosis breech presentation - Procedure version Vital Signs: Temp Pulse Resp BP Pulse Ox O2 Flow Rate 36.5 C 78 18 127/57 L 10/24/22 12:03 10/24/22 12:03 10/24/22 12:03 10/24/22 12:03 Height: 5 ft 5 in Weight (kg): 123.831 kg Body Mass Index: 45.4 BMI Classification: Morbidly Obese - NPO >8 hours - Is Patient ?: Yes - Lab Results Current Lab Results: Laboratory Tests 10/24/22 12:05: WBC 10.9 H, RBC 4.53, Hgb 11.7 L, Hct 37.8, MCV 83.4, MCH 25.8 L , MCHC 31.0 L, RDW 14.0, Plt Count 419, MPV 9.6, Neut # (Auto) 7.5 H, Lymph # (Auto) 2.2, [place] # (Auto) 1.1 H, Eos # (Auto) 0.1, Baso # (Auto) 0.0, Absolute Nucleated RBC 0.00, Nucleated RBC % 0.0 Fish Bones: 10/24/22 12:05 Home Medications and Allergies Active Medications Fentanyl (Fentanyl 100 Mcg/2 Ml Vial) 50 mcg IVP .ONCE PRN PRN Reason: Severe Pain (Score 7-10) Lactated Ringer's (Lr) 1,000 mls @ 999 mls/hr IV ONCE ONE Stop: 10/24/22 13:21 Last Admin: 10/24/22 12:34 Dose: 999 mls/hr Mineral Oil (Mineral Oil Light 10 Ml) 10 ml TOP .ONCE MUNA Ondansetron HCl (Ondansetron 4 Mg/2 Ml Vial) 4 mg IVP .ONCE PRN PRN Reason: Nausea / Vomiting Rho Immune Globulin (Rho(D) Immune Globulin 300 Mcg Syringe) 300 mcg IM .ONCE PRN PRN Reason: For Rh incompatibilty. Sodium Chloride (Sodium Chloride Flush 0.9% 10 Ml Syringe) 10 ml IVP PRN PRN PRN Reason: NEEDED PER PROVIDER ORDERS Terbutaline Sulfate (Terbutaline 1 Mg/Ml Vial) 0.25 mg SUBQ .ONCE PRN PRN Reason: Breech presentation No Known Home Medications 04/06/22 Allergies/Adverse Reactions: Allergies Allergy/AdvReac Type Severity Reaction Status Date / Time No Known Drug Allergies Allergy Verified 04/06/22 11:52 Anes History & Medical History - Anesthetic History Anesthesia Complications: reports: No previous complications Family history of Anesthesia Complications: Denies Family history of Malignant Hyperthermia: Denies - Medical History Cardiovascular: reports: None Pulmonary: reports: None Gastrointestinal: reports: None Urinary: reports: None Neuro: reports: None Musculoskeletal: reports: None Smoking Status: Never smoker - Obstetrical History : 2 Parity: 1 Events: reports: None Complications: reports: None Exam General: Alert, Oriented x3, Cooperative Dental: WNL Mouth Openin Fingerbreadth Neck Mobility: Normal Mallampati classification: III Thyromental Distance: 4-6 cm Respiratory: Lungs clear Cardiovascular: Regular rate Plan Anesthesia Type: Spinal Consent for Procedure(s) Verified and Reviewed: Yes Code Status: Attempt Resuscitation ASA classification: 2-Mild systemic disease Is this case an emergency?: No
[2022-10-24] MEDS ORDERED: fentaNYL 100 MCG/2 ML VIAL ONE (12:56)
[2022-10-24] MEDS ORDERED: MINERAL OIL LIGHT 10 ML TOP SCH (13:00)
[2022-10-24] MEDS ORDERED: LACTATED RINGERS 1,000 ML IV SCH (14:00)
[2022-10-24] MEDS ORDERED: ACETAMINOPHEN 325 MG TABLET PO PRN (14:51)
[2022-10-24] MEDS ORDERED: ACETAMINOPHEN 500 MG TABLET PO ONE (15:30)
--- NOTE | 2022-10-24 16:23 | PROCEDURE REPORT ---
Hospitalist Procedure Note - Procedure Note Procedure Note: Procedure date: 10/24/2022 Procedure: External cephalic version Indication: Breech presentation, 37 weeks gestation Patient consent: Patient consented to the risks of external cephalic version including the risk of heart rate changes, bleeding, placental abruption, rupture membranes, emergency section, cord prolapse, hemorrhage, stillbirth. Discussed the benefits [place] avoiding a planned section. Discussed we are not successful we will abandon procedure and plan a section. Patient agrees to this and desires to proceed. Anesthesia: Spinal anesthesia, but unsuccessful. Patient received micrograms of fentanyl. Complications: None Estimated blood loss: None Postop diagnosis: Breech presentation, 37 weeks gestation Procedure summary: Patient is a 27-year-old -0-0-1 at 37 weeks 2 days gestation who presented for an external cephalic version for breech presentation. She had a reactive NST prior to the procedure she was taken to the triage room where spinal anesthesia was attempted, but after several attempts was not able to get adequate control.. Under ultrasound guidance, the fetus was noted to be in breech presentation with head to maternal right upper quadrant and right flank breech presentation. Patient then received grams of fentanyl. The patient was given terbutaline for uterine relaxation. Using gentle, steady pressure, we attempted to rotate head clockwise fashion. After unsuccessfully attempting this, we attempted rotating in a clockwise fashion. Intermittent ultrasound was used to confirm heart tones. We were unsuccessful transfer baby head down, and ultrasound confirmed the fetus was still breech presentation. Patient was monitored with a reactive NST after the procedure. I appreciate the assistance of ENOCH Hicks during this procedure, and the assistance during the case was instrumental to the patient's wellbeing.
== END 2022-10-24 15:30 | disposition home or self-care (01) ==
LOC: WFO 11:43 → FBP 11:47 → WFO 15:30
PROVIDERS: ATTEND Obstetrics & Gynecology
DX: O32.1XX0 Maternal care for breech presentation, not applicable or unspecified (principal); O99.213 Obesity complicating pregnancy, third trimester; E66.01 Morbid (severe) obesity due to excess calories; Z3A.37 37 weeks gestation of pregnancy
CPT/HCPCS: 59412; 85025; 86850; 86870; 86880; 86900; 86901; 86922; A9270; J7120; 86920

== ENCOUNTER 2022-11-07 06:31 | Inpatient (IN) | payer MEDICAID ==
[~2022-11-07 06:31] MED LIST: ACETAMINOPHEN 1,000 MG/100 ML 1,000 MG/100 ML BAG IV ONE
--- OUTSIDE RECORDS SUMMARY | 2022-11-07 06:37 | EXTERNAL MEDICAL SUMMARY RPT | Continuity of Care Document ---
Author Name Unknown Address [address] [place] [address] Phone Organization [facility] Address [address] [place] [address] Phone Care Team Providers Care Accounts Receivable Manager Name Role Phone Unavailable Unavailable Unavailable Torri Whitaker, Bhupinder Unavailable Unavailable Carlyle Whitaker, Chepe Unavailable Unavailable Sierra, Provider Unavailable Unavailable Medications date description facility 2022-09-07 00:00 No Known Medications All 2022-09-07 00:00 No Known Medications All 2022-10-23 00:00 No Known Medications All Problems date description facility 2022-09-07 00:00 Acute upper respiratory infecti ons of unspecified site All 2022-09-07 00:00 Acute upper respiratory infecti ons of unspecified site All 2022-09-07 00:00 Acute upper respiratory infecti ons of unspecified site All 2022-09-07 00:00 Upper respiratory infection All 2022-09-07 00:00 Upper respiratory infection All 2022-09-07 00:00 Upper respiratory infection All 2022-09-07 00:00 Acute upper respiratory infecti on, unspecified All 2022-09-07 00:00 Acute upper respiratory infecti on, unspecified All 2022-09-07 00:00 Acute upper respiratory infecti on, unspecified All 2022-10-23 00:00 Breech presentation All 2022-10-23 00:00 Breech presentation without mention of version, unspecified as to episode of care or not applicable All 2022-10-23 00:00 Maternal care for br eech presentation, not applicable or unspecified All Procedures date description facility 2022-09-07 00:00 Visit Code Hold All 2022-09-07 00:00 Visit Code Hold All 2022-09-07 00:00 Visit Code Hold All 2022-08-14 00:00 1HR GTT All 2022-08-14 00:00 1HR GTT All 2022-08-14 00:00 1HR GTT All 2022-08-14 00:00 CBC w/o DIFF All 2022-08-14 00:00 CBC w/o DIFF All 2022-08-14 00:00 CBC w/o DIFF All 2022-08-14 00:00 ANTIBODY SCREEN All 2022-08-14 00:00 ANTIBODY SCREEN All 2022-08-14 00:00 ANTIBODY SCREEN All Results/Labs test date author facility value unit interpretation Result panel 1 (unknown) (no date) (unknown) All (no value) (units unknown) (unknown) Result panel 2 (unknown) (no date) (unknown) All (no value) (units unknown) (unknown) Result panel 3 (unknown) (no date) (unknown) All (no value) (units unknown) (unknown) Result panel 4 (unknown) (no date) (unknown) All (no value) (units unknown) (unknown) Result panel 5 (unknown) (no date) (unknown) All (no value) (units unknown) (unknown) Result panel 6 (unknown) (no date) (unknown) All (no value) (units unknown) (unknown) Result panel 7 (unknown) (no date) (unknown) All (no value) (units unknown) (unknown) Result panel 8 (unknown) (no date) (unknown) All (no value) (units unknown) (unknown) Result panel 9 (unknown) (no date) (unknown) All (no value) (units unknown) (unknown) Result panel 10 (unknown) (no date) (unknown) All (no value) (units unknown) (unknown) Result panel 11 (unknown) (no date) (unknown) All (no value) (units unknown) (unknown) Result panel 12 (unknown) (no date) (unknown) All (no value) (units unknown) (unknown) Result panel 13 (unknown) (no date) (unknown) All (no value) (units unknown) (unknown) Result panel 14 (unknown) (no date) (unknown) All (no value) (units unknown) (unknown) Result panel 15 (unknown) (no date) (unknown) All (no value) (units unknown) (unknown) Result panel 16 (unknown) (no date) (unknown) All (no value) (units unknown) (unknown) Result panel 17 (unknown) (no date) (unknown) All (no value) (units unknown) (unknown) Result panel 18 (unknown) (no date) (unknown) All (no value) (units unknown) (unknown) Result panel 19 (unknown) (no date) (unknown) All (no value) (units unknown) (unknown) Result panel 20 (unknown) (no date) (unknown) All (no value) (units unknown) (unknown) Result panel 21 (unknown) (no date) (unknown) All (no value) (units unknown) (unknown) Result panel 22 (unknown) (no date) (unknown) All (no value) (units unknown) (unknown) Result panel 23 (unknown) (no date) (unknown) All (no value) (units unknown) (unknown) Result panel 24 (unknown) (no date) (unknown) All (no value) (units unknown) (unknown) Result panel 25 (unknown) (no date) (unknown) All (no value) (units unknown) (unknown) Result panel 26 (unknown) (no date) (unknown) All (no value) (units unknown) (unknown) Result panel 27 (unknown) (no date) (unknown) All (no value) (units unknown) (unknown) Result panel 28 (unknown) (no date) (unknown) All (no value) (units unknown) (unknown) Result panel 29 (unknown) (no date) (unknown) All (no value) (units unknown) (unknown) Result panel 30 (unknown) (no date) (unknown) All (no value) (units unknown) (unknown) Result panel 31 (unknown) (no date) (unknown) All (no value) (units unknown) (unknown) Result panel 32 (unknown) (no date) (unknown) All (no value) (units unknown) (unknown) Result panel 33 (unknown) (no date) (unknown) All (no value) (units unknown) (unknown) Result panel 34 (unknown) (no date) (unknown) All (no value) (units unknown) (unknown) Result panel 35 (unknown) (no date) (unknown) All (no value) (units unknown) (unknown) Result panel 36 (unknown) (no date) (unknown) All (no value) (units unknown) (unknown) Result panel 37 (unknown) (no date) (unknown) All (no value) (units unknown) (unknown) Result panel 38 (unknown) (no date) (unknown) All (no value) (units unknown) (unknown) Result panel 39 (unknown) (no date) (unknown) All (no value) (units unknown) (unknown) Result panel 40 (unknown) (no date) (unknown) All (no value) (units unknown) (unknown) Result panel 41 (unknown) (no date) (unknown) All (no value) (units unknown) (unknown) Result panel 42 (unknown) (no date) (unknown) All (no value) (units unknown) (unknown) Result panel 43 (unknown) (no date) (unknown) All (no value) (units unknown) (unknown) Result panel 44 (unknown) (no date) (unknown) All (no value) (units unknown) (unknown) Result panel 45 (unknown) (no date) (unknown) All (no value) (units unknown) (unknown) Result panel 46 (unknown) (no date) (unknown) All (no value) (units unknown) (unknown) Result panel 47 (unknown) (no date) (unknown) All (no value) (units unknown) (unknown) Result panel 48 (unknown) (no date) (unknown) All (no value) (units unknown) (unknown) Result panel 49 (unknown) (no date) (unknown) All (no value) (units unknown) (unknown) Result panel 50 (unknown) (no date) (unknown) All (no value) (units unknown) (unknown) Result panel 51 (unknown) (no date) (unknown) All (no value) (units unknown) (unknown) Result panel 52 (unknown) (no date) (unknown) All (no value) (units unknown) (unknown) Result panel 53 (unknown) (no date) (unknown) All (no value) (units unknown) (unknown) Result panel 54 (unknown) (no date) (unknown) All (no value) (units unknown) (unknown) Result panel 55 (unknown) (no date) (unknown) All (no value) (units unknown) (unknown) Result panel 56 (unknown) (no date) (unknown) All (no value) (units unknown) (unknown) Result panel 57 (unknown) (no date) (unknown) All (no value) (units unknown) (unknown) Result panel 58 (unknown) (no date) (unknown) All (no value) (units unknown) (unknown) Result panel 59 (unknown) (no date) (unknown) All (no value) (units unknown) (unknown) Result panel 60 (unknown) (no date) (unknown) All (no value) (units unknown) (unknown) Result panel 61 (unknown) (no date) (unknown) All (no value) (units unknown) (unknown) Result panel 62 (unknown) (no date) (unknown) All (no value) (units unknown) (unknown) Result panel 63 (unknown) (no date) (unknown) All (no value) (units unknown) (unknown) Result panel 64 (unknown) (no date) (unknown) All (no value) (units unknown) (unknown) Result panel 65 (unknown) (no date) (unknown) All (no value) (units unknown) (unknown) Result panel 66 (unknown) (no date) (unknown) All (no value) (units unknown) (unknown) Result panel 67 (unknown) (no date) (unknown) All (no value) (units unknown) (unknown) Result panel 68 (unknown) (no date) (unknown) All (no value) (units unknown) (unknown) Result panel 69 (unknown) (no date) (unknown) All (no value) (units unknown) (unknown) Result panel 70 (unknown) (no date) (unknown) All (no value) (units unknown) (unknown) Result panel 71 (unknown) (no date) (unknown) All (no value) (units unknown) (unknown) Result panel 72 (unknown) (no date) (unknown) All (no value) (units unknown) (unknown) Result panel 73 (unknown) (no date) (unknown) All (no value) (units unknown) (unknown) Result panel 74 (unknown) (no date) (unknown) All (no value) (units unknown) (unknown) Result panel 75 (unknown) (no date) (unknown) All (no value) (units unknown) (unknown) Result panel 76 (unknown) (no date) (unknown) All (no value) (units unknown) (unknown) Result panel 77 (unknown) (no date) (unknown) All (no value) (units unknown) (unknown) Result panel 78 (unknown) (no date) (unknown) All (no value) (units unknown) (unknown) Result panel 79 (unknown) (no date) (unknown) All (no value) (units unknown) (unknown) Result panel 80 (unknown) (no date) (unknown) All (no value) (units unknown) (unknown) Result panel 81 (unknown) (no date) (unknown) All (no value) (units unknown) (unknown) Result panel 82 (unknown) (no date) (unknown) All (no value) (units unknown) (unknown) Result panel 83 (unknown) (no date) (unknown) All (no value) (units unknown) (unknown) Result panel 84 (unknown) (no date) (unknown) All (no value) (units unknown) (unknown) Result panel 85 (unknown) (no date) (unknown) All (no value) (units unknown) (unknown) Result panel 86 (unknown) (no date) (unknown) All (no value) (units unknown) (unknown) Result panel 87 (unknown) (no date) (unknown) All (no value) (units unknown) (unknown) Result panel 88 (unknown) (no date) (unknown) All (no value) (units unknown) (unknown) Result panel 89 (unknown) (no date) (unknown) All (no value) (units unknown) (unknown) Result panel 90 (unknown) (no date) (unknown) All (no value) (units unknown) (unknown) Result panel 91 (unknown) (no date) (unknown) All (no value) (units unknown) (unknown) Result panel 92 (unknown) (no date) (unknown) All (no value) (units unknown) (unknown) Result panel 93 (unknown) (no date) (unknown) All (no value) (units unknown) (unknown) Result panel 94 (unknown) (no date) (unknown) All (no value) (units unknown) (unknown) Result panel 95 (unknown) (no date) (unknown) All (no value) (units unknown) (unknown) Result panel 96 (unknown) (no date) (unknown) All (no value) (units unknown) (unknown) Result panel 97 (unknown) (no date) (unknown) All (no value) (units unknown) (unknown) Result panel 98 (unknown) (no date) (unknown) All (no value) (units unknown) (unknown) Result panel 99 (unknown) (no date) (unknown) All (no value) (units unknown) (unknown) Result panel 100 (unknown) (no date) (unknown) All (no value) (units unknown) (unknown) Result panel 101 (unknown) (no date) (unknown) All (no value) (units unknown) (unknown) Result panel 102 (unknown) (no date) (unknown) All (no value) (units unknown) (unknown) Result panel 103 (unknown) (no date) (unknown) All (no value) (units unknown) (unknown) Result panel 104 (unknown) (no date) (unknown) All (no value) (units unknown) (unknown) Result panel 105 (unknown) (no date) (unknown) All (no value) (units unknown) (unknown) Result panel 106 (unknown) (no date) (unknown) All (no value) (units unknown) (unknown) Result panel 107 (unknown) (no date) (unknown) All (no value) (units unknown) (unknown) Result panel 108 (unknown) (no date) (unknown) All (no value) (units unknown) (unknown) Result panel 109 (unknown) (no date) (unknown) All (no value) (units unknown) (unknown) Result panel 110 (unknown) (no date) (unknown) All (no value) (units unknown) (unknown) Result panel 111 (unknown) (no date) (unknown) All (no value) (units unknown) (unknown) Result panel 112 (unknown) (no date) (unknown) All (no value) (units unknown) (unknown) Result panel 113 (unknown) (no date) (unknown) All (no value) (units unknown) (unknown) Result panel 114 (unknown) (no date) (unknown) All (no value) (units unknown) (unknown) Result panel 115 (unknown) (no date) (unknown) All (no value) (units unknown) (unknown) Result panel 116 (unknown) (no date) (unknown) All (no value) (units unknown) (unknown) Result panel 117 (unknown) (no date) (unknown) All (no value) (units unknown) (unknown) Result panel 118 (unknown) (no date) (unknown) All (no value) (units unknown) (unknown) Result panel 119 (unknown) (no date) (unknown) All (no value) (units unknown) (unknown) Result panel 120 (unknown) (no date) (unknown) All (no value) (units unknown) (unknown) Result panel 121 (unknown) (no date) (unknown) All (no value) (units unknown) (unknown) Result panel 122 (unknown) (no date) (unknown) All (no value) (units unknown) (unknown) Result panel 123 (unknown) (no date) (unknown) All (no value) (units unknown) (unknown) Result panel 124 (unknown) (no date) (unknown) All (no value) (units unknown) (unknown) Result panel 125 (unknown) (no date) (unknown) All (no value) (units unknown) (unknown) Result panel 126 (unknown) (no date) (unknown) All (no value) (units unknown) (unknown) Result panel 127 (unknown) (no date) (unknown) All (no value) (units unknown) (unknown) Result panel 128 (unknown) (no date) (unknown) All (no value) (units unknown) (unknown) Result panel 129 (unknown) (no date) (unknown) All (no value) (units unknown) (unknown) Result panel 130 (unknown) (no date) (unknown) All (no value) (units unknown) (unknown) Result panel 131 (unknown) (no date) (unknown) All (no value) (units unknown) (unknown) Result panel 132 (unknown) (no date) (unknown) All (no value) (units unknown) (unknown) Result panel 133 (unknown) (no date) (unknown) All (no value) (units unknown) (unknown) Result panel 134 (unknown) (no date) (unknown) All (no value) (units unknown) (unknown) Result panel 135 (unknown) (no date) (unknown) All (no value) (units unknown) (unknown) Result panel 136 (unknown) (no date) (unknown) All (no value) (units unknown) (unknown) Result panel 137 (unknown) (no date) (unknown) All (no value) (units unknown) (unknown) Result panel 138 (unknown) (no date) (unknown) All (no value) (units unknown) (unknown) Result panel 139 (unknown) (no date) (unknown) All (no value) (units unknown) (unknown) Result panel 140 (unknown) (no date) (unknown) All (no value) (units unknown) (unknown) Result panel 141 (unknown) (no date) (unknown) All (no value) (units unknown) (unknown) Result panel 142 (unknown) (no date) (unknown) All (no value) (units unknown) (unknown) Result panel 143 (unknown) (no date) (unknown) All (no value) (units unknown) (unknown) Result panel 144 (unknown) (no date) (unknown) All (no value) (units unknown) (unknown) Result panel 145 (unknown) (no date) (unknown) All (no value) (units unknown) (unknown) Result panel 146 (unknown) (no date) (unknown) All (no value) (units unknown) (unknown) Result panel 147 (unknown) (no date) (unknown) All (no value) (units unknown) (unknown) Result panel 148 (unknown) (no date) (unknown) All (no value) (units unknown) (unknown) Result panel 149 (unknown) (no date) (unknown) All (no value) (units unknown) (unknown) Result panel 150 (unknown) (no date) (unknown) All (no value) (units unknown) (unknown) Result panel 151 (unknown) (no date) (unknown) All (no value) (units unknown) (unknown) Result panel 152 (unknown) (no date) (unknown) All (no value) (units unknown) (unknown) Result panel 153 (unknown) (no date) (unknown) All (no value) (units unknown) (unknown) Result panel 154 (unknown) (no date) (unknown) All (no value) (units unknown) (unknown) Result panel 155 (unknown) (no date) (unknown) All (no value) (units unknown) (unknown) Result panel 156 (unknown) (no date) (unknown) All (no value) (units unknown) (unknown) Result panel 157 (unknown) (no date) (unknown) All (no value) (units unknown) (unknown) Result panel 158 (unknown) (no date) (unknown) All (no value) (units unknown) (unknown) Result panel 159 (unknown) (no date) (unknown) All (no value) (units unknown) (unknown) Result panel 160 (unknown) (no date) (unknown) All (no value) (units unknown) (unknown) Result panel 161 (unknown) (no date) (unknown) All (no value) (units unknown) (unknown) Social History date description facility 2022-10-23 00:00 Never smoker All Vital Signs date measurement value units 2022-09-07 00:00 BMI 43.57 kg/m2 2022-09-07 00:00 BP_diastolic 74 mmHg 2022-09-07 00:00 BP_systolic 109 mmHg 2022-09-07 00:00 heart_rate 76 /min 2022-09-07 00:00 height_metric 167.64 cm 2022-09-07 00:00 height_standard 66 in 2022-09-07 00:00 respiration_rate 16 /min 2022-09-07 00:00 temperature_metric 36.61 C 2022-09-07 00:00 temperature_standard 97.9 F 2022-09-07 00:00 weight_metric 122.02 kg 2022-09-07 00:00 weight_standard 269 lb 2022-10-23 00:00 BMI 44.35 kg/m2 2022-10-23 00:00 BP_diastolic 70 mmHg 2022-10-23 00:00 BP_systolic 124 mmHg 2022-10-23 00:00 height_metric 167.64 cm 2022-10-23 00:00 height_standard 66 in 2022-10-23 00:00 temperature_metric 36.56 C 2022-10-23 00:00 temperature_standard 97.8 F 2022-10-23 00:00 weight_metric 124.19 kg 2022-10-23 00:00 weight_standard 273.8 lb
[2022-11-07] MEDS ORDERED: GABAPENTIN 400 MG CAPSULE PO SCH (07:00)
[2022-11-07] MEDS ORDERED: LACTATED RINGERS 1,000 ML IV SCH ×2 (07:00→09:00)
--- NOTE | 2022-11-07 07:16 | HISTORY & PHYSICAL EXAMINATION ---
Admit History - : 2 Parity: 1 Complications This : positive: Other ( malpresentation) Smoking Status: Never smoker - Mother's Labs Mother's Blood Type: positive: A Mother's RH: positive: Negative GBS: positive: Other (Uknown) Rubella Status: positive: Equivocal - Other Maternal History Other Maternal History: HPI: 27-year-old -0-0-1 at 39 weeks 3 days gestation here for planned section for malpresentation. She has good movement. Denies loss of fluid. No BAH/BV or RUQP. No vaginal bleeding. Denies nausea and vomiting. Denies urinary urgency or dysuria. All other symptoms reviewed and were negative except per HPI. Course LMP: 02/04/22 MARCIA by LMP: 11/11/21 Initial U/S:04/13/22 @ 9w5d c/w LPM MARCIA FINAL MARCIA:11/11/2022 Problems History of son with ASD. We will screen for genetic causes later in as well as assess heart on FAS. Rh-: Will need RhoGAM at 28 weeks. Obesity: Discussed 11 to 20 pound weight gain. Heart palpitations: Likely physiologic changes of , but will keep diary of symptoms. No recent symptoms. Breech presentation: Unsuccessful version last week. Pre- Weight: 269.6 BMI: 43.67 A negative/Rubella equivocal RHOGAM 28WKS Received with [facility] VZV:non immune Genetic testing: Quad screen ordered 05/22/2022- completed at 22.7wks. Cannot determine Down Syndrome or Trisomy 18 risk FAS:06/27- Placenta posterior 1.6 cm from internal os, low-lying placenta. Will repeat in third trimester. 514.7 cm. Cervical canal 6.5 cm long. EFW 364 g, 55th percentile.Ventricular outflow tracts not well visualized. Will repeat and attempt better visualization. F/U 07/06- Placental issue has resolved now posterior without previa. Can still not see ventricular outflow tracts. Will attempt at future date Follow-up 08/04/2022: Left cardiac ventricular outflow tract grossly normal, but suboptimally seen. Right ventricular outflow tract was not seen. Glucola 135 Influenza: 07/17/22 TDAP COVID- Vaccination 09/06/20 GBS @ ___ wks negative per pt HSV: Denies in self or partner Breast pump Rx MOD: pp contraception:Likely Interval tubal ligation pap: 04/24/2022 Normal. Initial GC/CT: negative PMH Obesity PSH No prior surgery OB History -0-0-1 1. 07/03/2016, 41 weeks, , male SH Denies tobacco, alcohol, drugs Family History Maternal grandfather: Heart disease Paternal grandfather: Diabetes Son born with ASD and pulmonary stenosis Allergies No known drug allergies Medications vitamins Physical exam: General: Alert, oriented, no acute distress Head: Normal cephalic atraumatic Eyes: PERRLA, extraocular motions intact. Respiratory: Normal rate of respiration. No accessory muscle use, normal respiratory effort. Cardiovascular: Regular rate and rhythm Abdomen: Gravid, nontender, nondistended Extremities: Normal range of motion Neuro: Oriented x3. Normal movements Psych: Appropriate mood and affect. Normal judgment and insight FHT: 150 beats per baseline, moderate variability, accelerations present, no decelerations. Reactive NST Neville: Quiescent Plan 27-year-old -0-0-1 at 39 weeks 3 days gestation here for planned section 1. section -Admit to L&D, admit labs 3 g cefazolin -ERAS medications 2. 39 weeks gestation 3. malpresentation 4. Obesity Meds/Allgy - Home Medications Home Medications: Ambulatory Orders Medication Instructions Recorded Confirmed No Known Home Medications 04/06/22 04/06/22 - Allergies Allergies/Adverse Reactions: Allergies Allergy/AdvReac Type Severity Reaction Status Date / Time No Known Drug Allergies Allergy Verified 04/06/22 11:52
[2022-11-07] MEDS ORDERED: CELECOXIB 100 MG CAPSULE PO ONE (07:30)
[2022-11-07 07:45] LABS: BASOPHILS % (AUTO) 0.3 %; EOSINOPHILS # (AUTO) 0.1 10^3/uL (0.0-0.7); EOSINOPHILS % (AUTO) 0.9 %; HCT - HEMATOCRIT 34.6 % (37.0-47.0); HGB - HEMOGLOBIN 10.8 g/dL (12.0-16.0); LYMPHOCYTES # (AUTO) 2.2 10^3/uL (1.5-3.5); LYMPHOCYTES % (AUTO) 21.9 %; MEAN CORPUSCULAR HEMOGLOBIN 26.1 pg (27.0-31.0); MEAN CORPUSCULAR HGB CONC 31.2 g/dL (32.0-36.0); MEAN CORPUSCULAR VOLUME 83.6 fL (81.0-99.0); MEAN PLATELET VOLUME 9.9 fL (7.9-10.8); MONOCYTES # (AUTO) 0.8 10^3/uL (0.0-1.0); MONOCYTES % (AUTO) 8.2 %; NEUTROPHILS # (AUTO) 6.9 10^3/uL (1.5-6.6); NEUTROPHILS % (AUTO) 68.3 %; PLT - PLATELET COUNT 380 10^3/uL (130-450); RED BLOOD COUNT 4.14 10^6/uL (4.20-5.40); RED CELL DISTRIBUTION WIDTH 14.3 % (12.0-15.0)
[2022-11-07] MEDS ORDERED: fentaNYL 100 MCG/2 ML VIAL IVP PRN (08:13)
[2022-11-07] MEDS ORDERED: NALOXONE 0.4 MG/ML VIAL IVP PRN ×2 (08:13→15:31)
[2022-11-07] MEDS ORDERED: ONDANSETRON 4 MG/2 ML VIAL IVP PRN ×2 (08:13→15:31)
[2022-11-07] MEDS ORDERED: ATROPINE ABBOJECT 1 MG/10 ML SYRINGE IVP PRN (08:13)
[2022-11-07] MEDS ORDERED: HYDROmorphone 0.5 MG/0.5 ML SYRINGE IVP PRN (08:13)
[2022-11-07] MEDS ORDERED: CITRIC ACID/SODIUM CITRATE 15 ML UDC PO ONE (08:13)
[2022-11-07] MEDS ORDERED: MORPHINE 2 MG/ML CARPUJECT IVP PRN (08:13)
--- NOTE | 2022-11-07 08:13 | ANESTHESIA ---
Pre-Anesthesia VS, & Labs - Diagnosis breech presentation - Procedure primary c/s Vital Signs: Temp Pulse Resp BP Pulse Ox O2 Flow Rate 36.8 C 56 L 20 117/64 11/07/22 07:19 11/07/22 07:19 11/07/22 07:19 11/07/22 07:19 Height: 5 ft 5 in Weight (kg): 124.284 kg Body Mass Index: 45.6 BMI Classification: Morbidly Obese - NPO >8 hours - Is Patient ?: Yes - Lab Results Current Lab Results: Laboratory Tests 11/07/22 07:30: WBC 10.0, RBC 4.14 L, Hgb 10.8 L, Hct 34.6 L, MCV 83.6, MCH 26.1 L, MCHC 31.2 L, RDW 14.3, Plt Count 380, MPV 9.9, Neut # (Auto) 6.9 H, Lymph # (Auto) 2.2, [place] # (Auto) 0.8, Eos # (Auto) 0.1, Baso # (Auto) 0.0, Absolute Nucleated RBC 0.00, Nucleated RBC % 0.0 Lab results reviewed: Yes Fish Bones: 11/07/22 07:30 Home Medications and Allergies Active Medications Gabapentin (Gabapentin 400 Mg Capsule) 800 mg PO ONCE MUNA Stop: 11/07/22 11:00 Lactated Ringer's (Lr) 1,000 mls @ 0 mls/hr IV .Q0M MUNA Last Admin: 11/07/22 07:43 Dose: 100 mls/hr No Known Home Medications 04/06/22 Allergies/Adverse Reactions: Allergies Allergy/AdvReac Type Severity Reaction Status Date / Time No Known Drug Allergies Allergy Verified 04/06/22 11:52 Anes History & Medical History - Anesthetic History Family history of Anesthesia Complications: Denies Family history of Malignant Hyperthermia: Denies - Medical History Cardiovascular: reports: None Pulmonary: reports: None Gastrointestinal: reports: None Urinary: reports: None Neuro: reports: None Musculoskeletal: reports: None Endocrine/Autoimmune: reports: None Blood Disorders: reports: None Skin: reports: None Smoking Status: Never smoker Psychosocial: reports: No issues indicated History of Cancer?: No Other Past Medical History: Has had difficult spinal/epidural placements. Anesthesia provider was not able to get spinal placed for ECV and had 3 attempted epidurals with her last that were unsuccessful. - Obstetrical History : 2 Parity: 1 Events: reports: None Complications: reports: Other ( malpresentation) Exam General: Alert, Oriented x3, Cooperative, No acute distress Dental: Poor dentition Mouth Openin Fingerbreadth Neck Mobility: Normal Mallampati classification: II Thyromental Distance: 4-6 cm Mental/Cognitive Status: Alert/Oriented X3, Normal for patient Plan Anesthesia Type: General (possible if unable to place spinal), Spinal Consent for Procedure(s) Verified and Reviewed: Yes Code Status: Attempt Resuscitation ASA classification: 2-Mild systemic disease Is this case an emergency?: No
[2022-11-07] MEDS ORDERED: CARBOPROST TROMETHAMINE 250 MCG/ML AMP IM ONE (08:21)
[2022-11-07] MEDS ORDERED: miSOPROStoL 200 MCG TABLET ONE (08:21)
[2022-11-07] MEDS ORDERED: METHYLERGONOVINE 0.2 MG/ML VIAL ONE (08:21)
[2022-11-07] MEDS ORDERED: OXYTOCIN 10 UNIT/ML VIAL ONE (08:23)
[2022-11-07] MEDS ORDERED: PHENYLEPHRINE 10 MG/ML VIAL ONE (08:25)
[2022-11-07] MEDS ORDERED: fentaNYL 100 MCG/2 ML VIAL ONE (08:30)
[2022-11-07] MEDS ORDERED: ACETAMINOPHEN 1,000 MG/100 ML 1,000 MG/100 ML BAG IV ONE (08:30)
[2022-11-07] MEDS ORDERED: MORPHINE PF 5 MG/10 ML VIAL ONE (08:30)
[2022-11-07] MEDS ORDERED: MORPHINE PF 5 MG/10 ML VIAL IT ONE (08:50)
[2022-11-07] MEDS ORDERED: fentaNYL 100 MCG/2 ML VIAL IT ONE (08:50)
[2022-11-07] MEDS ORDERED: GLYCOPYRROLATE 1 MG/5 ML VIAL ONE (08:53)
[2022-11-07] MEDS ORDERED: SODIUM CHLORIDE 0.9% 10 ML VIAL IVP ONE (08:53)
[2022-11-07] MEDS ORDERED: ONDANSETRON 4 MG/2 ML VIAL ONE (09:42)
[2022-11-07] MEDS ORDERED: ONDANSETRON ODT 4 MG TABLET TL PRN (09:56)
[2022-11-07] MEDS ORDERED: SODIUM CHLORIDE FLUSH 0.9% 10 ML SYRINGE IVP PRN (09:56)
[2022-11-07] MEDS ORDERED: OXYTOCIN/SODIUM CHLORIDE 500 ML IV PRN (09:56)
--- NOTE | 2022-11-07 09:59 | OPERATIVE REPORT ---
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 The left uterine horn nondilated. Fetus inn only right side of uterus. Complications: None - Other Other Information/Narrative: section was recommended. Risks, benefits and alternatives were discussed including but not limited to infection, bleeding that may require blood products or hysterectomy for life saving measures, injury to surrounding organs including but not limited to bowel, bladder, ureters, tubes and ovaries and/or the baby. Should injury occur it could require longer/additional surgery to repair. The patient stated understanding and desired to proceed. All questions were answered posed by patient. Prior to being taken to the OR, 3 grams of cefazolin IV was administered. The patient was taken to the operating room where regional anesthesia was found to be adequate. She was then prepared and draped in the usual sterile fashion in the dorsal supine position with a leftward tilt displacing the uterus. Vazquez was draining to gravity. SCDs were on bilateral lower extremities. A pfannenstiel skin incision was then made with the scalpel and carried through to the underlying layer of fascia. The fascia was incised in the midline and the incision extended laterally with the Wiley scissors. The superior aspect of the facial incision was then grasped with the Kiara clamps, elevated and the underlying rectus muscles dissected off sharply. Attention was then turned to the inferior aspect of this incision which in a similar fashion was grasped, elevated with the Kiara clamps and the rectus muscle dissected off sharply. The rectus muscles were in the midline. The peritoneum identified, grasped with the pick-ups and entered sharply with the Metzenbaum scissors. The peritoneal incision was then extended superiorly and inferiorly with good visualization of the bladder. The bladder blade was inserted. The vesicouterine peritoneum was identified, grasped with the pick-ups, and entered sharply with Metzenbaum scissors. This incision was then extended laterally and the bladder flap created digitally. The bladder blade was reinserted. The lower uterine segment was identified and incised in a transverse fashion with the scalpel. The uterine incision was then extended bluntly laterally. Artificial rupture of membranes demonstrated light meconium. The bladder blade was removed. The fetus was in complete breech presentation. Both feet were delivered through the hysterotomy. The fetus was deliered to the sacrum and was covered with a sterile towel. The fetus was delivered to the scapula and the right shoulder was roated anteriorly. The right arm was medially rotated flexed at the elbow and extended through the hysterotomy. The left shoulder was then rotated anteriorly and similarly delivered through the hysterotomy. The infants head delivered atraumatically. There was a lose nuchal cord reduced after delivery of the head. . The infants mouth and nose were bulb suctioned. The umbilical cord was clamped times two and cut. The was handed to the pediatric team. The placenta was removed with gentle traction. Oxytocin were added to IVF and allowed to run freely. The uterus was exteriorized and cleared of all clots and debris. The uterine incision was inspected and found to be without any extensions and was repaired with 0 Vicryl in a running, locked fashion. A second imbricating layer was performed. Upon inspection, the repaired hysterotomy was found to be hemostatic. The uterus was firm and returned to the abdomen. The gutters were cleared of all clots and debris. The fascia was reapproximated with 0 Vicryl in a running fashion. The subcutaneous tissue was closed with 2-0 Vicryl. The skin was closed in a subcuticular fashion with 4-0 Monocryl. The patient tolerated the procedure well. Sponge, lap and needle counts were correct times three. The patient was taken to the recovery room in stable condition. I appreciate the assistance of ENOCH Hicks during this procedure, and the assistance in retraction, visualization, dissection, and overall assistance during the case were instrumental to the patient's wellbeing.
[2022-11-07] MEDS ORDERED: LACTATED RINGERS 300 ML IV ONE (10:29)
[2022-11-07] MEDS: KETOROLAC 30 MG/ML VIAL IVP SCH ×3 (11:37→23:38)
[2022-11-07] MEDS: SODIUM CHLORIDE FLUSH 0.9% 10 ML SYRINGE IVP SCH ×2 (11:38→23:38)
[2022-11-07] MEDS: LACTATED RINGERS 1,000 ML IV SCH ×3 (12:12→20:39)
[2022-11-07] MEDS: oxyCODONE 5 MG TABLET PO PRN (14:41)
--- NOTE | 2022-11-07 15:28 | ANESTHESIA POST OP EVALUATION ---
Anesthesia Post Eval - Post Anesthesia Eval Vitals: Last Vital Signs Temp 36.3 C L 11/07/22 12:25 Pulse 52 L 11/07/22 13:00 Resp 16 11/07/22 13:00 BP 102/51 L 11/07/22 13:00 Pulse Ox 98 11/07/22 13:00 O2 Flow Rate CV Function Including HR & BP: Stable Pain Control: Satisfactory Nausea & Vomiting: Negative Mental Status: Baseline Respiratory Status: Airway Patent Hydration Status: Satisfactory Anesthesia Complications: None
[2022-11-07] MEDS ORDERED: diphenhydrAMINE INJ 50 MG/ML VIAL IVP PRN (15:31)
[2022-11-07] MEDS ORDERED: NALBUPHINE 10 MG/ML AMP IVP PRN (15:31)
[2022-11-07] MEDS: ACETAMINOPHEN 500 MG TABLET PO SCH (15:54)
[2022-11-07] MEDS: SIMETHICONE CHEW 80 MG TABLET PO PRN (21:27)
[2022-11-07] MEDS: DOCUSATE SODIUM 100 MG CAPSULE PO SCH (21:28)
[2022-11-08] MEDS: ACETAMINOPHEN 500 MG TABLET PO SCH ×3 (00:07→18:00)
[2022-11-08] MEDS: oxyCODONE 5 MG TABLET PO PRN ×3 (04:13→16:02)
[2022-11-08] MEDS: KETOROLAC 30 MG/ML VIAL IVP SCH (05:47)
[2022-11-08 06:29] LABS: BASOPHILS % (AUTO) 0.2 %; EOSINOPHILS # (AUTO) 0.1 10^3/uL (0.0-0.7); EOSINOPHILS % (AUTO) 0.7 %; HCT - HEMATOCRIT 27.5 % (37.0-47.0); HGB - HEMOGLOBIN 8.4 g/dL (12.0-16.0); LYMPHOCYTES # (AUTO) 1.6 10^3/uL (1.5-3.5); LYMPHOCYTES % (AUTO) 14.9 %; MEAN CORPUSCULAR HEMOGLOBIN 25.9 pg (27.0-31.0); MEAN CORPUSCULAR HGB CONC 30.5 g/dL (32.0-36.0); MEAN CORPUSCULAR VOLUME 84.9 fL (81.0-99.0); MEAN PLATELET VOLUME 9.4 fL (7.9-10.8); MONOCYTES % (AUTO) 8.8 %; NEUTROPHILS # (AUTO) 8.1 10^3/uL (1.5-6.6); NEUTROPHILS % (AUTO) 74.9 %; PLT - PLATELET COUNT 285 10^3/uL (130-450); RED BLOOD COUNT 3.24 10^6/uL (4.20-5.40); RED CELL DISTRIBUTION WIDTH 14.5 % (12.0-15.0); WHITE BLOOD COUNT 10.8 x10^3/uL (4.8-10.8)
--- NOTE | 2022-11-08 08:06 | PROVIDER PROGRESS NOTE ---
Subjective - Prog Note Date Prog Note Date: 11/08/22 Prog Note Time: 08:06 - Subjective Pt reports feeling: Improved Subjective: Subjective Patient reports she is doing well. Lochia appropriate. Denies heavy bleeding. Ambulating. Pelvic and abdominal pain well-controlled. Tolerating oral intake. Diet: Regular. Voiding without difficulty. Passing small amount of flatus. Denies BM. Patient is bonding with baby in room Breast feeding going well. Denies feeling lightheaded, dizzy or excessively fatigued. Objective General: Alert, oriented, no apparent distress. Cardiovascular: Regular rate. Regular rhythm. Lungs: No increased work of breathing. Abdomen: Uterus firm. Below umbilicus. No guarding or rebound. Extremities: No pain on palpation. No cords palpated. Distal pulses intact. Incision: Clean, dry, and intact. Bandage removed today. Steri-Strips in place. Assessment and Plan day 1. -Routine care -Anticipate discharge tomorrow Rh-: Rh-. Negative screen. Objective - Vital Signs/Intake & Output Vital Signs: Vital Signs x48h Temp Pulse Resp BP 11/08/22 04:15 98.6 F 76 18 114/65 Intake & Output: Intake & Output 11/05/22 11/06/22 11/07/22 11/08/22 23:59 23:59 23:59 23:59 Intake Total 2844.500 1250 Output Total 1580 675 Balance 1264.500 575 - Lab Results Fish Bones: 11/08/22 06:24 Other Labs: Lab Results x24hrs 11/08/22 11/07/22 Range/Units 06:24 07:30 WBC 10.8 (4.8-10.8) x10^3/uL RBC 3.24 L (4.20-5.40) 10^6/uL Hgb 8.4 L (12.0-16.0) g/dL Hct 27.5 L (37.0-47.0) % MCV 84.9 (81.0-99.0) fL MCH 25.9 L (27.0-31.0) pg MCHC 30.5 L (32.0-36.0) g/dL RDW 14.5 (12.0-15.0) % Plt Count 285 (130-450) 10^3/uL MPV 9.4 (7.9-10.8) fL Neut # (Auto) 8.1 H (1.5-6.6) 10^3/uL Lymph # (Auto) 1.6 (1.5-3.5) 10^3/uL [place] # (Auto) 1.0 (0.0-1.0) 10^3/uL Eos # (Auto) 0.1 (0.0-0.7) 10^3/uL Baso # (Auto) 0.0 (0.0-0.1) 10^3/uL Absolute Nucleated RBC 0.00 x10^3/uL Nucleated RBC % 0.0 /100WBC Blood Type A NEGATIVE Antibody Screen NEGATIVE
[2022-11-08] MEDS: DOCUSATE SODIUM 100 MG CAPSULE PO SCH ×2 (09:08→21:17)
[2022-11-08] MEDS: IBUPROFEN 600 MG TABLET PO SCH ×2 (12:00→18:00)
[2022-11-09] MEDS: IBUPROFEN 600 MG TABLET PO SCH ×4 (00:12→22:19)
--- NOTE | 2022-11-09 07:30 | PROVIDER PROGRESS NOTE ---
Subjective - Prog Note Date Prog Note Date: 11/09/22 Prog Note Time: 07:29 - Subjective Pt reports feeling: Improved Subjective: Subjective Patient reports she is doing well. Tired baby awake all night, but not a huge issue. Lochia appropriate. Denies heavy bleeding. Ambulating. Pelvic and abdominal pain well-controlled. Tolerating oral intake. Diet: Regular. Voiding without difficulty. Passing flatus. Denies BM. Patient is bonding with baby in room Breast feeding going well. Denies feeling lightheaded, dizzy or excessively fatigued. Objective General: Alert, oriented, no apparent distress. Cardiovascular: Regular rate. Regular rhythm. Lungs: No increased work of breathing. Abdomen: Uterus firm. Below umbilicus. No guarding or rebound. Extremities: No pain on palpation. No cords palpated. Distal pulses intact. Incision: Clean, dry, and intact. Assessment and Plan day 2. -Routine care -Anticipate discharge tomorrow Objective - Vital Signs/Intake & Output Vital Signs: Vital Signs x48h Temp Pulse Pulse Resp BP Pulse Ox 11/09/22 03:53 98.4 F 63 20 110/50 L 98 11/09/22 00:30 98.1 F 68 18 99/47 L 97 Intake & Output: Intake & Output 11/06/22 11/07/22 11/08/22 11/09/22 23:59 23:59 23:59 23:59 Intake Total 2844.500 1250 Output Total 1580 1675 Balance 1264.500 -425 - Lab Results Fish Bones: 11/08/22 06:24
--- NOTE | 2022-11-09 07:33 | Discharge Plan ---
Discharge Plan Problem Reviewed?: Yes Disposition: Home, Self Care Condition: Good Prescriptions: Docusate Sodium 100Mg Capsule [Colace 100Mg Capsule] 100 - 200 mg PO BID PRN #60 cap PRN Reason: Constipation Ibuprofen [Motrin] 600 mg PO Q6H PRN #30 tab PRN Reason: Pain oxyCODONE [Roxicodone] 5 mg PO Q4H PRN #20 tablet PRN Reason: Severe Pain Diet: Regular Activity Restrictions: No Restrictions Shower Restrictions: No Driving Restrictions: Yes (While taking opioid medications or with severe pain.) Instruction Topics: C Section Dc No Smoking: If you smoke, Please STOP! Call for help. Follow-up with: Chepe Tadeo MD [Provider Admit Priv/Credential] -
[2022-11-09] MEDS: oxyCODONE 5 MG TABLET PO PRN (09:36)
[2022-11-09] MEDS: DOCUSATE SODIUM 100 MG CAPSULE PO SCH ×2 (09:36→21:29)
[2022-11-09] MEDS: ACETAMINOPHEN 500 MG TABLET PO SCH ×2 (11:07→20:06)
[2022-11-09] MEDS: SIMETHICONE CHEW 80 MG TABLET PO PRN (11:15)
[2022-11-10] MEDS: ACETAMINOPHEN 500 MG TABLET PO SCH ×2 (04:18→11:26)
[2022-11-10] MEDS: IBUPROFEN 600 MG TABLET PO SCH ×2 (04:18→10:11)
--- NOTE | 2022-11-10 09:05 | DISCHARGE SUMMARY ---
Discharge Summary Admit Date: 11/07/22 Discharge Date: 11/10/22 Discharging Provider: Chepe munoz MD Code Status: Attempt Resuscitation Condition at Discharge: Good Discharge Disposition: 01 Home, Self Care - DIAGNOSES Admission Diagnoses: 39 weeks gestation Breech presentation Rh- Obesity Discharge Diagnoses with Status of Each Condition: 39 weeks gestation Breech presentation Rh- Obesity Status post primary low-transverse section Delivery of live couch . - HPI History of Present Illness: Subjective Patient reports she is doing well. Lochia appropriate. Denies heavy bleeding. Ambulating. Pelvic and abdominal pain well-controlled. Tolerating oral intake. Diet: Regular. Voiding without difficulty. Passing flatus. Denies BM. Patient is bonding with baby in room Breast feeding going well. Denies feeling lightheaded, dizzy or excessively fatigued. Objective General: Alert, oriented, no apparent distress. Cardiovascular: Regular rate. Regular rhythm. Lungs: No increased work of breathing. Abdomen: Uterus firm. Below umbilicus. No guarding or rebound. Extremities: No pain on palpation. No cords palpated. Distal pulses intact. Incision: Clean, dry, and intact. - HOSPITAL COURSE Hospital Course: Patient was admitted for scheduled low-transverse section. Surgery was uncomplicated and had delivery of a live couch . Birthweight 3645 g - ALLERGIES Allergies/Adverse Reactions: Allergies Allergy/AdvReac Type Severity Reaction Status Date / Time No Known Drug Allergies Allergy Verified 04/06/22 11:52 - MEDICATIONS Home Medications: Ambulatory Orders Medication Instructions Recorded Confirmed Docusate Sodium 100Mg Capsule 100 - 200 mg PO BID PRN #60 cap 11/09/22 [Colace 100Mg Capsule] Ibuprofen [Motrin] 600 mg PO Q6H PRN #30 tab 11/09/22 oxyCODONE [Roxicodone] 5 mg PO Q4H PRN #20 tablet 11/09/22 - LABS Result Diagrams: 11/08/22 06:24 - FOLLOW UP Follow Up: Follow-up with Chepe Tadeo MD in 1 week. - TIME SPENT Time Spent in Discharge (Minutes): 30
[2022-11-10] MEDS: DOCUSATE SODIUM 100 MG CAPSULE PO SCH (10:11)
[2022-11-10 12:56] VITALS: BP 113/70
== END 2022-11-10 15:00 | disposition home or self-care (01) | DRG 788 ==
LOC: FBP 06:31
PROVIDERS: ADMIT Obstetrics & Gynecology; ATTEND Obstetrics & Gynecology
PROC: 10D00Z1 Extraction of Products of Conception, Low, Open Approach (ICD-10-PCS; principal; 2022-11-07 08:30)
DX: O32.1XX0 Maternal care for breech presentation, not applicable or unspecified (principal); Z3A.39 39 weeks gestation of pregnancy; Z37.0 Single live birth; O99.214 Obesity complicating childbirth; O69.81X0 Labor and delivery complicated by cord around neck, without compression, not applicable or unspecified
CPT/HCPCS: 36415; 85025; 86850; 86900; 86901; A9270; J0131; J2274; J7040; J7120

== ENCOUNTER 2023-05-28 09:21 | Emergency (ER) | payer MEDICAID ==
[2023-05-28 09:46] VITALS: BP 143/67; O2SAT 98
--- NOTE | 2023-05-28 10:12 | XRAY Report ---
PROCEDURE: Chest 2 View X-Ray INDICATIONS: cough TECHNIQUE: 2 views of the chest were acquired. COMPARISON: Plain films dated 01/05/2022 FINDINGS: Surgical changes and devices: None. Lungs and pleura: No pleural effusions or pneumothorax. Lungs are clear. Mediastinum: Mediastinal contours appear normal. Heart size is normal. Bones and chest wall: No suspicious bony lesions. Overlying soft tissues appear unremarkable. IMPRESSION: No acute process. Reviewed by: Angel Farias MD on 05/28/2023 10:11 AM [facility] Approved by: Angel Farias MD on 05/28/2023 10:11 AM [facility] Station ID: [id number]
--- NOTE | 2023-05-28 10:28 | ED Physician Documentation ---
History of Present Illness - Stated complaint Stated Complaint: COUGH,SIDE PX - Chief complaint Chief Complaint: Resp - History obtained from History obtained from: Patient - Additonal information Additional information: Previously healthy 27-year-old woman has had a productive cough for 3 weeks. Cough is productive of green to yellow sputum. Did have some hemoptysis last week which has resolved. She had fevers on and off the whole time. Now has developed some dizziness and abdominal cramps with coughing. PD PAST MEDICAL HISTORY - Past Medical History Past Medical History: Yes Cardiovascular: None Respiratory: None Neuro: None Endocrine/Autoimmune: None GI: None : None Musculoskeletal: None Derm: None - Past Surgical History Past Surgical History: No - Present Medications Home Medications: Ambulatory Orders Medication Instructions Recorded Confirmed Docusate Sodium 100Mg Capsule 100 - 200 mg PO BID PRN #60 cap 11/09/22 [Colace 100Mg Capsule] Ibuprofen [Motrin] 600 mg PO Q6H PRN #30 tab 11/09/22 oxyCODONE [Roxicodone] 5 mg PO Q4H PRN #20 tablet 11/09/22 Albuterol Sulf [Ventolin Hfa 1 - 2 puffs INH Q4HR PRN #1 each 05/28/23 Inhaler] Benzonatate [Tessalon] 200 mg PO TID PRN #20 cap 05/28/23 Doxycycline [Vibramycin] 100 mg PO BID #14 tablet 05/28/23 guaiFENesin/CODEINE [Robitussin AC] 5 - 10 ml PO Q6H PRN #120 ml 05/28/23 - Allergies Allergies/Adverse Reactions: Allergies Allergy/AdvReac Type Severity Reaction Status Date / Time No Known Drug Allergies Allergy Verified 05/28/23 09:37 - Social History Does the pt smoke?: No Smoking Status: Never smoker Does the pt drink ETOH?: Yes Does the pt have substance abuse?: No - Immunizations Immunizations are current?: No - POLST Patient has POLST: No PD ED PE NORMAL - Vitals Vital signs reviewed: Yes - General General: Alert and oriented X 3, No acute distress - Cardiac Cardiac: RRR, No murmur - Respiratory Respiratory: No respiratory distress, Clear bilaterally - Abdomen Abdomen: Non tender - Neuro Neuro: Alert and oriented X 3, Normal speech Results - Vitals Vitals: Vital Signs - 24 hr 05/28/23 09:35 Temperature 37.0 C Heart Rate 70 Respiratory 20 Rate Blood Pressure 143/67 H O2 Saturation 98 Oxygen O2 Source Room air PD Medical Decision Making - ED course ED course: 27-year-old woman with bronchitis, negative chest x-ray, given the length of symptoms would trial some antibiotics and other conservative measures. Departure - Departure Disposition: Home, Self Care Clinical Impression: Bronchitis Condition: Good Record reviewed to determine appropriate education?: Yes Instructions: ED Upper Resp Infec Abx Tx Prescriptions: Albuterol Sulf [Ventolin Hfa Inhaler] 1 - 2 puffs INH Q4HR PRN #1 each PRN Reason: Shortness Of Air/Wheezing guaiFENesin/CODEINE [Robitussin AC] 5 - 10 ml PO Q6H PRN #120 ml PRN Reason: Cough Benzonatate [Tessalon] 200 mg PO TID PRN #20 cap PRN Reason: Cough Doxycycline [Vibramycin] 100 mg PO BID #14 tablet Comments: [facility] [place]. The dizziness and abdominal pain should improve as the cough improves. Call your doctor to arrange a follow-up appointment, make the next available appointment. In the interim, return anytime if worse or if new symptoms develop.
== END 2023-05-28 10:34 | disposition home or self-care (01) ==
LOC: ED 09:21
DX: J40 Bronchitis, not specified as acute or chronic (principal)
CPT/HCPCS: 99283

== ENCOUNTER 2023-09-30 16:17 | Emergency (ER) | payer MEDICAID ==
--- NOTE | 2023-09-30 17:00 | ED Physician Documentation ---
PD HPI OPHTHO - Stated complaint Stated Complaint: RT EYE PX/BLURRY - Chief complaint Chief Complaint: Heent - History obtained from History obtained from: Patient - History of Present Illness Timing - onset: How many days ago (4-5) Timing - duration: Days (4-5) Timing - details: Gradual onset Pain level max: 5 Pain level now: 5 Location: Right Associated symptoms: No: Redness, Swelling, Tearing, Discharge, FB sensation, Photophobia, Double vision, Headache Contributing factors: Wears glasses. No: Recent URI, Chemical exposure, acid, Chemical exposure, base, Blunt trauma, Wears contacts - Additional information Additional information: 28-year-old female presents to the emergency department stating that she has had pressure behind her right eye for the past 4 to 5 days. Occasionally her vision feels blurry. She states occasionally she may see a black dot in her vision. She wears glasses but not contacts. There is no drainage. No redness. No swelling or tearing. No discharge. No photophobia. No headache. Denies any nasal congestion, sore throat, cough. No trauma. She states that the pressure feels better when she applies pressure to the periorbital area especially the forehead. Review of Systems Constitutional: denies: Fever, Chills Eyes: denies: Photophobia, Discharge, Irritation Throat: denies: Sore throat Cardiac: denies: Chest pain / pressure, Palpitations Respiratory: denies: Cough Musculoskeletal: denies: Neck pain, Back pain Neurologic: denies: Headache, LOC PD PAST MEDICAL HISTORY - Past Medical History Past Medical History: Yes Cardiovascular: None Respiratory: None Neuro: None Endocrine/Autoimmune: None GI: None : None Musculoskeletal: None Derm: None - Past Surgical History Past Surgical History: No - Present Medications Home Medications: Ambulatory Orders Medication Instructions Recorded Confirmed Ibuprofen [Motrin] 600 mg PO Q6H PRN #30 tab 11/09/22 09/30/23 Cetirizine HCl/Pseudoephedrine 1 tab PO BID PRN #20 tab 09/30/23 [Zyrtec-D ER 5 mg-120 mg Tablet] Sertraline HCl 1 tab PO DAILY 09/30/23 09/30/23 - Allergies Allergies/Adverse Reactions: Allergies Allergy/AdvReac Type Severity Reaction Status Date / Time No Known Drug Allergies Allergy Verified 09/30/23 16:28 - Social History Does the pt smoke?: No Smoking Status: Never smoker Does the pt drink ETOH?: Yes Does the pt have substance abuse?: No - Immunizations Immunizations are current?: No - POLST Patient has POLST: No PD ED PE NORMAL - Vitals Vital signs reviewed: Yes - General General: Alert and oriented X 3, No acute distress - HEENT HEENT: Atraumatic, PERRL, EOMI, Moist mucous membranes, Other (Optic nerve sheath is approximately 2.3 mm in the right eye. No papilledema. Normal funduscopic exam. Intraocular pressure 13. No conjunctival injection. Eyelids everted. 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 Normal IOP. Normal funduscopic exam. Normal optic nerve sheath diameter on ultrasound. No papilledema. She does have relief of the pressure with applied pressure on the frontal sinus. No change with proparacaine. Possible that she has ethmoid sinus pressure, we will trial her on decongestants and see how this progresses over the next 1 to 2 days. Recommend close follow-up with ophthalmology for further care. Patient counseled regarding signs and symptoms for which I believe and urgent re- evaluation would be necessary. Patient with good understanding of and agreement to plan and is comfortable going home at this time This document was made in part using voice recognition software. While efforts are made to proofread this document, sound alike and grammatical errors may occur. Departure - Departure Disposition: 01 Home, Self Care Clinical Impression: Eye pain Qualifiers: Laterality: right Qualified Code(s): H57.11 - Ocular pain, right eye Sinusitis Qualifiers: Sinusitis location: ethmoidal Chronicity: acute Recurrence: recurrent Qualified Code(s): J01.21 - Acute recurrent ethmoidal sinusitis Condition: Good Instructions: ED Sinusitis No Abx Follow-Up: Ankita Jade ARNP [Primary Care Provider] - Within 1 week Ta Saavedra MD [Provider Admit Priv/Credential] - Within 1 week Prescriptions: Cetirizine HCl/Pseudoephedrine [Zyrtec-D ER 5 mg-120 mg Tablet] 1 tab PO BID PRN #20 tab PRN Reason: nasal congestion Comments: Your prescription was sent to [facility] in [place]. Please follow-up with ophthalmology for further care. The cause of your symptoms is unclear but may be related to your sinuses. Your pressure in your eye as well as the examination of your eye and posterior eye are normal. Forms: PCP List Discharge Date/Time: 09/30/23 17:06
[2023-09-30 17:10] VITALS: BP 136/82; O2SAT 100
== END 2023-09-30 17:06 | disposition home or self-care (01) ==
LOC: ED 16:17
DX: H57.11 Ocular pain, right eye (principal); J01.21 Acute recurrent ethmoidal sinusitis
CPT/HCPCS: 99282; 99283

== ENCOUNTER 2023-10-25 19:27 | Emergency (ER) | payer MEDICAID ==
[2023-10-25 19:39] VITALS: BP 145/73; O2SAT 100
--- NOTE | 2023-10-25 21:47 | ED Physician Documentation ---
PD HPI LOWER EXT INJURY - Stated complaint Stated Complaint: LT ANKLE INJ - Chief complaint Chief Complaint: Ext Problem - History obtained from History obtained from: Patient - History of Present Illness PD HPI LOW EXT INJURY LOCATION: Left, Ankle, Foot Type of injury: Twist Where injury occurred: Home Timing - onset: Yesterday Pain level max: 5 Pain level now: 5 Improved by: Rest, Immobilization Worsened by: Moving, Palpating Associated symptoms: Swelling. No: Weakness, Numbness, Tingling, Discolored Contributing factors: No: Anticoagulated - Additional information Additional information: Patient states that she was going down the steps and twisted her left foot and ankle yesterday. Continued pain today. Worse with walking, better with rest. Noted swelling today 2. No discoloration, no numbness, tingling. Not anticoagulated. Review of Systems Neurologic: denies: Head injury PD PAST MEDICAL HISTORY - Past Medical History Cardiovascular: None Respiratory: None Neuro: None Endocrine/Autoimmune: None GI: None : None Musculoskeletal: None Derm: None - Past Surgical History Past Surgical History: No - Present Medications Home Medications: Ambulatory Orders Medication Instructions Recorded Confirmed No Known Home Medications 10/25/23 10/25/23 - Allergies Allergies/Adverse Reactions: Allergies Allergy/AdvReac Type Severity Reaction Status Date / Time No Known Drug Allergies Allergy Verified 10/25/23 19:32 - Social History Does the pt smoke?: No Smoking Status: Never smoker Does the pt drink ETOH?: Yes Does the pt have substance abuse?: No - Immunizations Immunizations are current?: No - POLST Patient has POLST: No PD ED PE NORMAL - Vitals Vital signs reviewed: Yes - General General: Alert and oriented X 3, No acute distress - HEENT HEENT: Moist mucous membranes - Neck Neck: Supple, no meningeal sign - Derm Derm: Warm and dry - Extremities Extremities: Other (Left ankle - Tender palpation over the lateral malleolus. Otherwise normal examination of the left ankle. Also mild soft tissue swelling at the site. Mild tenderness over the base of the fifth metatarsal of the left foot as well. Neurovascular intact) - Neuro Neuro: Alert and oriented X 3 - Psych Psych: Normal mood, Normal affect Results - Vitals Vitals: Vital Signs - 24 hr 10/25/23 19:28 Temperature 36.4 C L Heart Rate 81 Respiratory 16 Rate Blood Pressure 145/73 H O2 Saturation 100 Oxygen O2 Source Room air - Rads (name of study) Left foot x-ray Relevant Findings:: Final report received, See rad report Left ankle x-ray Relevant Findings:: Final report received, See rad report PD Medical Decision Making - ED course Complexity details: reviewed results, re-evaluated patient, considered differential, d/w patient ED course: No acute fractures or dislocation on x-ray. Placed in a gel splint for comfort. Can utilize Motrin and Tylenol as needed for pain at home. Declines crutches. Will have her continue supportive care and follow-up with her doctor as needed for further care. Patient counseled regarding signs and symptoms for which I believe and urgent re-evaluation would be necessary. Patient with good understanding of and agreement to plan and is comfortable going home at this time This document was made in part using voice recognition software. While efforts are made to proofread this document, sound alike and grammatical errors may occur. Departure - Departure Disposition: 01 Home, Self Care Clinical Impression: Left ankle sprain Qualifiers: Encounter type: initial encounter Involved ligament of ankle: unspecified ligament Qualified Code(s): S93.402A - Sprain of unspecified ligament of left ankle, initial encounter Condition: Good Instructions: ED Sprain Ankle W X Ray Follow-Up: Ankita Jade ARNP [Primary Care Provider] - Within 1 week Comments: Your x-ray of your foot and ankle do not show any fractures or dislocations today. Please wear the brace as needed for pain. You can use Motrin or Tylenol for pain at home. Please return if you worsen. Continue to gently range your foot at home, stretching the ligaments gently will help to heal the sprain. Forms: PCP List Discharge Date/Time: 10/25/23 21:53
--- NOTE | 2023-10-26 00:30 | XRAY Report ---
PROCEDURE: Foot 3+V LT INDICATIONS: fall, pain TECHNIQUE: 3 views of the foot were acquired. COMPARISON: X-ray ankle 10/25/23. FINDINGS: Bones: No fractures or dislocations. No suspicious bony lesions. Soft tissues: No tibiotalar joint effusion. Achilles tendon appears normal. Mild dorsal soft tissu e edema. IMPRESSION: Mild dorsal soft tissue edema. No visualized acute fracture or dislocation. However, occult injury ca nnot be excluded. Recommend short interval imaging follow-up in 7-10 days as clinically indicated for additional evaluation. The above findings are concordant with preliminary report. Reviewed by: Trish Ronquillo MD on 10/26/2023 12:29 AM PDT Approved by: Trish Ronquillo MD on 10/26/2023 12:29 AM PDT Station ID: [id number]
--- NOTE | 2023-10-26 00:34 | XRAY Report ---
PROCEDURE: Ankle 3+V LT INDICATIONS: fall, pain TECHNIQUE: 3 views of the ankle were acquired. COMPARISON: X-ray foot 5-24 FINDINGS: Bones: No fractures or dislocations. Ankle mortise is normally aligned. No suspicious bony lesions . Soft tissues: No tibiotalar joint effusion. Achilles tendon appears normal. Dorsal as well as late ral malleoli are soft tissue edema. IMPRESSION: Dorsal and lateral malleoli or soft tissue edema. No visualized acute fracture or dislocation. Howeve r, occult injury cannot be excluded. Recommend short interval imaging follow-up in 7-10 days as clini jeni indicated for additional evaluation. The above findings are concordant with preliminary report. Reviewed by: Trish Ronquillo MD on 10/26/2023 12:33 AM PDT Approved by: Trish Ronquillo MD on 10/26/2023 12:33 AM PDT Station ID: [id number]
== END 2023-10-25 21:53 | disposition home or self-care (01) ==
LOC: ED 19:27
DX: S93.402A Sprain of unspecified ligament of left ankle, initial encounter (principal); X50.1XXA Overexertion from prolonged static or awkward postures, initial encounter
CPT/HCPCS: 99283